=== PATIENT | female | born 1950 | race Caucasian/White ===

== ENCOUNTER 2016-05-29 14:42 | Inpatient (IN) | payer MEDICARE, MEDICAID ==
[~2016-05-29] VITALS: Ht 152.4 cm; Wt 72.6 kg
[~2016-05-29 14:42] MED LIST: ALBUTEROL S2.5 MG/.5 IN; ALBUTEROL0.5 % IN; ALBUTEROL2.5 MG/3 M IN; AMOXICILLIN500 MG PO; ANTIVERT12.5 MG OR; ATARAX PO; BP PILL; CEPHALEXIN500 MG OR; CIPROFLOXACN500 MG PO; CYCLOBENZAPR10 MG PO; EPIPEN 2-PAK0.3 MG IM; EPIPEN0.3 MG IM; FIORICET OR; FLEXERIL OR; FLONASE0.05 %; HYDROCHLOROT12.5 MG PO; LISINOPRIL10 MG PO; LORTAB 5 OR; LORTAB5 OR; MECLIZINE12.5 M1 OR; MEDDOSEPAK OR; MEDDOSEPAK PO; MELOXICAM15 MG OR; MUCINEX600 MG OR; NASONEX50 MCG/AC; NASONEX50 MCG/AC NAB; PENICILLN VK500 MG OR; PRAVACHOL20 MG PO; PROAIR HFA IN; RANITIDINE150 M1 OR; RANITIDINE150 M1 PO; REGLAN5 MG OR; STOMACH PILL; TERBINAFINE1 % EX; TRAMADOL HCL50 MG OR; TRAMADOL HCL50 MG PO; TRIAMCINOLON0.51 EX; TYLENOL COLD1 TA1 OR; ULTRAM50 M1 PO; XOPENEX HFA IN; ZITHROMAX250 MG PO; ZOFRAN ODT4 MG PO
[2016-05-29] MEDS ORDERED: NAPROXEN500 MG PO (16:53)
[2016-05-29] MEDS ORDERED: OMEPRAZOLE20 M1 PO (16:54)
[2016-05-29] MEDS ORDERED: LISINOP/HCTZ1 TAB PO (16:55)
[2016-05-29] MEDS ORDERED: PROAIR HFA IN (16:56)
[2016-06-30] VITALS (7 sets, daily range): BP systolic 101–120; BP diastolic 63–68
[2016-07-01 00:05] VITALS: BP 110/77
[2016-07-01 04:20] VITALS: BP 107/70
[2016-07-01 06:35] LABS: HEMATOCRIT 35.4 % (37.0-47.0); HEMOGLOBIN 11.2 g/dl (12.0-16.0); IMMATURE GRANULOCYTES 0.8 % (0.0-1.0); MEAN CELL VOLUME 90.5 fL CALC (80.0-100.0); MEAN CORPUSCULAR HGB 28.6 pG CALC (26.0-32.0); MEAN CORPUSCULAR HGB CONC 31.6 g/L CALC (32.0-36.0); NEUT# 10.18 thou/uL (2.00-7.15); RED BLOOD COUNT 3.91 mill/uL (4.20-5.60); RED CELL DISTRI WIDTH 14.4 % (11.5-15.5)
[2016-07-01 06:55] LABS: ALBUMIN 3.5 g/dL (3.2-5.0); ALKALINE PHOSPHATASE 74 u/l (38-126); ANION GAP 12 (6-22 (CALC)); BILIRUBIN, TOTAL 0.3 mg/dL (0.0-1.4); BUN 19 mg/dL (8-23); BUN/CREATININE RATIO 22 (12-20 (CALC)); CALCIUM 8.5 mg/dL (8.4-10.2); CARBON DIOXIDE 30 mmol/l (22-30); CHLORIDE 100 mmol/l (95-108); CREATININE 0.9 mg/dL (0.5-1.0); GFR > 60 ML/MIN (>=60 (CALC)); GFR FOR AFR.AMER. > 60 ML/MIN (>=60 (CALC)); GLUCOSE 122 mg/dL (82-115); POTASSIUM 4.2 mmol/l (3.5-5.1); SGOT/AST 28 u/l (9-36); SGPT/ALT 33 u/l (11-66); SODIUM 138 mmol/l (137-146); TOTAL PROTEIN 6.7 g/dL (6.3-8.2)
[2016-07-01 08:04] VITALS: BP 107/64
[2016-07-01 12:39] VITALS: BP 105/63
[2016-07-01 15:58] VITALS: BP 123/67
[2016-07-01 18:56] VITALS: BP 104/63
[2016-07-02 03:40] VITALS: BP 116/63
[2016-07-02 05:32] LABS: HEMATOCRIT 31.4 % (37.0-47.0); HEMOGLOBIN 9.7 g/dl (12.0-16.0)
[2016-07-02 07:51] VITALS: BP 113/66
[2016-07-02 11:53] VITALS: BP 103/58
[2016-07-02 15:11] VITALS: BP 110/57
[2016-07-02 18:16] LABS: URINE BILIRUBIN - DIPSTICK NEGATIVE (NEGATIVE); URINE BLOOD DIPSTICK MODERATE (NEGATIVE); URINE CLARITY CLEAR; URINE COLOR YELLOW; URINE GLUCOSE - DIPSTICK NEGATIVE (NEGATIVE); URINE KETONE NEGATIVE (NEGATIVE); URINE LEUK ESTERASE NEGATIVE (NEGATIVE); URINE NITRITE - DIPSTICK NEGATIVE (Negative); URINE PROTEIN - DIPSTICK TRACE mg/dL (NEG-TRACE); URINE UROBILINOGEN - DIPSTICK 0.2 E.U./dL (0.2)
[2016-07-02 18:39] LABS: URINE SQUAMOUS EPITHELIAL CELL FEW EPI/hpf (0-FEW)
[2016-07-02 19:15] VITALS: BP 100/58
[2016-07-02 23:40] VITALS: BP 101/63
[2016-07-03 03:59] VITALS: BP 103/57
[2016-07-03 05:11] LABS: HEMATOCRIT 27.9 % (37.0-47.0); HEMOGLOBIN 8.8 g/dl (12.0-16.0); IMMATURE GRANULOCYTES 0.5 % (0.0-1.0); MEAN CELL VOLUME 90.6 fL CALC (80.0-100.0); MEAN CORPUSCULAR HGB 28.6 pG CALC (26.0-32.0); MEAN CORPUSCULAR HGB CONC 31.5 g/L CALC (32.0-36.0); NEUT# 7.73 thou/uL (2.00-7.15); RED BLOOD COUNT 3.08 mill/uL (4.20-5.60); RED CELL DISTRI WIDTH 14.4 % (11.5-15.5)
[2016-07-03 05:29] LABS: ANION GAP 9 (6-22 (CALC)); BUN 12 mg/dL (8-23); BUN/CREATININE RATIO 19 (12-20 (CALC)); CALCIUM 8.1 mg/dL (8.4-10.2); CARBON DIOXIDE 32 mmol/l (22-30); CHLORIDE 99 mmol/l (95-108); CREATININE 0.6 mg/dL (0.5-1.0); GFR > 60 ML/MIN (>=60 (CALC)); GFR FOR AFR.AMER. > 60 ML/MIN (>=60 (CALC)); GLUCOSE 118 mg/dL (82-115); POTASSIUM 4.2 mmol/l (3.5-5.1); SODIUM 135 mmol/l (137-146)
[2016-07-03 08:27] VITALS: BP 104/66
[2016-07-03 15:50] VITALS: BP 117/62
[2016-07-03 19:30] VITALS: BP 107/62
[2016-07-04 04:30] VITALS: BP 121/69
[2016-07-04 06:16] LABS: HEMATOCRIT 30.3 % (37.0-47.0); HEMOGLOBIN 9.4 g/dl (12.0-16.0)
[2016-07-04 08:15] VITALS: BP 115/69
[2016-07-04] MEDS ORDERED: LEVAQUIN750 MG PO (12:50)
[2016-07-04] MEDS ORDERED: PERCOCET 10/31 COMBO PO (12:50)
[2016-07-04] MEDS ORDERED: XARELTO10 MG PO (21:20)
== END 2016-07-04 16:42 | DRG 469 ==
LOC: ENPENDDIS → MS2 06-01 09:30
PROVIDERS: ADMIT Internal Medicine; ATTEND Orthopaedic Surgery
PROC: 0SRC0J9 Replacement of Right Knee Joint with Synthetic Substitute, Cemented, Open Approach (ICD-10-PCS; principal; 2016-06-30)
DX: M17.11 Unilateral primary osteoarthritis, right knee (principal); J18.9 Pneumonia, unspecified organism; J95.89 Other postprocedural complications and disorders of respiratory system, not elsewhere classified; I10 Essential (primary) hypertension; J45.909 Unspecified asthma, uncomplicated; Y83.1 Surgical operation with implant of artificial internal device as the cause of abnormal reaction of the patient, or of later complication, without mention of misadventure at the time of the procedure; Y92.239 Unspecified place in hospital as the place of occurrence of the external cause; Z88.6 Allergy status to analgesic agent
CPT/HCPCS: J1650; J2710

== ENCOUNTER 2017-01-23 11:21 | Emergency (ER) | payer MEDICARE, MEDICAID ==
[~2017-01-23] VITALS: Ht 152.4 cm; Wt 73.2 kg
[~2017-01-23 11:21] MED LIST changes: +LEVAQUIN750 MG PO; +LISINOP/HCTZ1 TAB PO; +NAPROXEN500 MG PO; +OMEPRAZOLE20 M1 PO; +PERCOCET 10/31 COMBO PO; +XARELTO10 MG PO
[2017-01-23 12:48] LABS: HEMATOCRIT 45.1 % (37.0-47.0); HEMOGLOBIN 14.7 g/dl (12.0-16.0); IMMATURE GRANULOCYTES 0.8 % (0.0-1.0); MEAN CELL VOLUME 85.6 fL CALC (80.0-100.0); MEAN CORPUSCULAR HGB 27.9 pG CALC (26.0-32.0); MEAN CORPUSCULAR HGB CONC 32.6 g/L CALC (32.0-36.0); NEUT# 5.29 thou/uL (2.00-7.15); RED BLOOD COUNT 5.27 mill/uL (4.20-5.60); RED CELL DISTRI WIDTH 13.8 % (11.5-15.5)
[2017-01-23 12:52] LABS: URINE BILIRUBIN - DIPSTICK NEGATIVE (NEGATIVE); URINE COLOR YELLOW; URINE GLUCOSE - DIPSTICK NEGATIVE (NEGATIVE); URINE KETONE NEGATIVE (NEGATIVE); URINE LEUK ESTERASE NEGATIVE (NEGATIVE); URINE NITRITE - DIPSTICK NEGATIVE (Negative); URINE PROTEIN - DIPSTICK NEGATIVE (NEG-TRACE); URINE SPECIFIC GRAVITY 1.025; URINE UROBILINOGEN - DIPSTICK 0.2 E.U./dL (0.2)
[2017-01-23 12:55] LABS: URINE BLOOD DIPSTICK TRACE (NEGATIVE); URINE CLARITY CLEAR
[2017-01-23 12:56] LABS: ALBUMIN 4.7 g/dL (3.2-5.0); ALKALINE PHOSPHATASE 102 u/l (38-126); AMYLASE 99 u/l (30-110); ANION GAP 15 (6-22 (CALC)); BILIRUBIN, TOTAL 0.7 mg/dL (0.0-1.4); BUN 30 mg/dL (8-23); BUN/CREATININE RATIO 34 (12-20 (CALC)); CALCIUM 9.6 mg/dL (8.4-10.2); CARBON DIOXIDE 27 mmol/l (22-30); CHLORIDE 101 mmol/l (95-108); CREATININE 0.9 mg/dL (0.5-1.0); GFR > 60 ML/MIN (>=60 (CALC)); GFR FOR AFR.AMER. > 60 ML/MIN (>=60 (CALC)); GLUCOSE 94 mg/dL (82-115); LIPASE 172 u/l (23-300); POTASSIUM 4.1 mmol/l (3.5-5.1); SGOT/AST 39 u/l (9-36); SGPT/ALT 40 u/l (11-66); SODIUM 139 mmol/l (137-146); TOTAL PROTEIN 8.8 g/dL (6.3-8.2)
[2017-01-23 13:08] LABS: MYOGLOBIN 40 ng/mL (0 - 62)
[2017-01-23] MEDS ORDERED: PRILOSEC20 MG PO (15:48)
[2017-01-23 16:14] VITALS: BP 117/64
== END 2017-01-23 17:04 | disposition home or self-care (01) ==
LOC: ED 11:21
PROVIDERS: Emergency Medicine
DX: R10.11 Right upper quadrant pain (principal); R11.0 Nausea; I10 Essential (primary) hypertension; K76.0 Fatty (change of) liver, not elsewhere classified

== ENCOUNTER 2017-01-28 12:40 | Emergency (ER) | payer MEDICARE, MEDICAID ==
[~2017-01-28] VITALS: Ht 152.4 cm; Wt 75.0 kg
[~2017-01-28 12:40] MED LIST changes: +PRILOSEC20 MG PO
[2017-01-28] MEDS ORDERED: POLYTRIM OU (13:35)
[2017-01-28 13:45] VITALS: BP 107/78
== END 2017-01-28 13:45 | disposition home or self-care (01) ==
LOC: ED 12:40
DX: S05.02XA Injury of conjunctiva and corneal abrasion without foreign body, left eye, initial encounter (principal); I10 Essential (primary) hypertension; M19.90 Unspecified osteoarthritis, unspecified site; X58.XXXA Exposure to other specified factors, initial encounter

== ENCOUNTER 2017-08-08 00:29 | Emergency (ER) | payer MEDICARE, MEDICAID ==
[~2017-08-08] VITALS: Ht 152.4 cm; Wt 72.7 kg
[~2017-08-08 00:29] MED LIST changes: +POLYTRIM OU
[2017-08-08 01:12] LABS: HEMATOCRIT 39.7 % (37.0-47.0); HEMOGLOBIN 13.1 g/dl (12.0-16.0); IMMATURE GRANULOCYTES 0.6 % (0.0-1.0); MEAN CELL VOLUME 87.1 fL CALC (80.0-100.0); MEAN CORPUSCULAR HGB 28.7 pG CALC (26.0-32.0); NEUT# 4.3 thou/uL (2.00-7.15); RED BLOOD COUNT 4.56 mill/uL (4.20-5.60); RED CELL DISTRI WIDTH 14.3 % (11.5-15.5)
[2017-08-08 01:20] LABS: ALKALINE PHOSPHATASE 111 u/l (38-126); ANION GAP 16 (6-22 (CALC)); BILIRUBIN, TOTAL 0.3 mg/dL (0.0-1.4); BUN 31 mg/dL (8-23); BUN/CREATININE RATIO 37 (12-20 (CALC)); CARBON DIOXIDE 25 mmol/l (22-30); CHLORIDE 103 mmol/l (95-108); CREATININE 0.8 mg/dL (0.5-1.0); GFR > 60 ML/MIN (>=60 (CALC)); GFR FOR AFR.AMER. > 60 ML/MIN (>=60 (CALC)); POTASSIUM 4.3 mmol/l (3.5-5.1); SGOT/AST 30 u/l (9-36); SGPT/ALT 45 u/l (11-66); SODIUM 139 mmol/l (137-146); TOTAL PROTEIN 7.7 g/dL (6.3-8.2)
[2017-08-08 01:29] LABS: URINE BILIRUBIN - DIPSTICK NEGATIVE (NEGATIVE); URINE BLOOD DIPSTICK MODERATE (NEGATIVE); URINE COLOR YELLOW; URINE GLUCOSE - DIPSTICK NEGATIVE (NEGATIVE); URINE KETONE NEGATIVE (NEGATIVE); URINE LEUK ESTERASE NEGATIVE (NEGATIVE); URINE NITRITE - DIPSTICK NEGATIVE (Negative); URINE PH 5.5 (4.5-8.0); URINE PROTEIN - DIPSTICK NEGATIVE (NEG-TRACE); URINE SPECIFIC GRAVITY 1.015; URINE UROBILINOGEN - DIPSTICK 0.2 E.U./dL (0.2)
[2017-08-08 01:32] LABS: URINE CLARITY SL CLOUDY
[2017-08-08 01:40] LABS: URINE BACTERIA FEW hpf; URINE MUCUS FEW hpf (NONE-FEW); URINE SQUAMOUS EPITHELIAL CELL MODERATE EPI/hpf (0-FEW); URINE WBC 0-2 WBC/hpf (0-5)
[2017-08-08] MEDS ORDERED: ANTIVERT PO (02:13)
[2017-08-08 02:21] VITALS: BP 138/75
== END 2017-08-08 02:37 | disposition home or self-care (01) ==
LOC: ED 00:29
PROVIDERS: Family Medicine
DX: R42 Dizziness and giddiness (principal); I10 Essential (primary) hypertension

== ENCOUNTER 2017-09-19 12:02 | Emergency (ER) | payer MEDICARE, MEDICAID ==
[~2017-09-19] VITALS: Ht 152.4 cm; Wt 81.8 kg
[~2017-09-19 12:02] MED LIST changes: +ANTIVERT PO
[2017-09-19 12:31] LABS: HEMATOCRIT 41.4 % (37.0-47.0); HEMOGLOBIN 13.6 g/dl (12.0-16.0); IMMATURE GRANULOCYTES 0.3 % (0.0-1.0); MEAN CELL VOLUME 86.8 fL CALC (80.0-100.0); MEAN CORPUSCULAR HGB 28.5 pG CALC (26.0-32.0); MEAN CORPUSCULAR HGB CONC 32.9 g/L CALC (32.0-36.0); NEUT# 5.37 thou/uL (2.00-7.15); RED BLOOD COUNT 4.77 mill/uL (4.20-5.60); RED CELL DISTRI WIDTH 13.6 % (11.5-15.5)
[2017-09-19 12:47] LABS: ALBUMIN 4.6 g/dL (3.2-5.0); ALKALINE PHOSPHATASE 118 u/l (38-126); ANION GAP 17 (6-22 (CALC)); BILIRUBIN, TOTAL 0.4 mg/dL (0.0-1.4); BUN 36 mg/dL (8-23); BUN/CREATININE RATIO 32 (12-20 (CALC)); CARBON DIOXIDE 25 mmol/l (22-30); CHLORIDE 104 mmol/l (95-108); CREATININE 1.1 mg/dL (0.5-1.0); GFR 50 ML/MIN (>=60 (CALC)); GFR FOR AFR.AMER. 60 ML/MIN (>=60 (CALC)); POTASSIUM 4.5 mmol/l (3.5-5.1); SGOT/AST 29 u/l (9-36); SGPT/ALT 42 u/l (11-66); SODIUM 142 mmol/l (137-146); TOTAL PROTEIN 8.9 g/dL (6.3-8.2)
[2017-09-19 12:55] LABS: MYOGLOBIN 54 ng/mL (0 - 62)
[2017-09-19] MEDS ORDERED: LISINOP/HCTZ1 TAB PO (14:28)
[2017-09-19] MEDS ORDERED: OMEPRAZOLE20 M2 PO (14:31)
[2017-09-19] MEDS ORDERED: MECLIZINE HCL25 MG PO (14:34)
[2017-09-19] MEDS ORDERED: ATORVASTATIN CA40 MG PO (14:38)
[2017-09-19] MEDS ORDERED: ISOSORB MONO20 MG PO (14:39)
[2017-09-19] MEDS ORDERED: METO25TAB PO (14:40)
[2017-09-19] MEDS ORDERED: PLAVIX75 MG PO (14:46)
[2017-09-19] MEDS ORDERED: NITROGLYCERIN0.3 MG SL (14:51)
[2017-09-19 14:54] LABS: URINE BILIRUBIN - DIPSTICK NEGATIVE (NEGATIVE); URINE BLOOD DIPSTICK TRACE-INTACT (NEGATIVE); URINE COLOR YELLOW; URINE GLUCOSE - DIPSTICK NEGATIVE (NEGATIVE); URINE KETONE NEGATIVE (NEGATIVE); URINE LEUK ESTERASE NEGATIVE (NEGATIVE); URINE NITRITE - DIPSTICK NEGATIVE (Negative); URINE PH 5.5 (4.5-8.0); URINE PROTEIN - DIPSTICK NEGATIVE (NEG-TRACE); URINE SPECIFIC GRAVITY >=1.030; URINE UROBILINOGEN - DIPSTICK 0.2 E.U./dL (0.2)
[2017-09-19 14:58] LABS: BARBITURATES NEGATIVE (NEGATIVE); COCAINE NEGATIVE (NEGATIVE); METHADONE NEGATIVE (NEGATIVE); OXCYCODONE NEGATIVE (NEGATIVE); TETRAHYDROCANNABIONOL NEGATIVE (NEGATIVE); TRICYLIC ANTIDEPRESSANTS NEGATIVE (NEGATIVE); URINE CLARITY CLEAR
--- NOTE | 2017-09-19 15:16 | NUR ---
Medication reconciliation completed by pharmacy.
[2017-09-19] MEDS ORDERED: METO50TA52 PO (16:19)
[2017-09-19 16:21] VITALS: BP 118/71
== END 2017-09-19 16:35 | disposition home or self-care (01) ==
LOC: ED 12:02
PROVIDERS: Family Medicine
DX: R00.0 Tachycardia, unspecified (principal); I25.10 Atherosclerotic heart disease of native coronary artery without angina pectoris; I21.9 Acute myocardial infarction, unspecified; I10 Essential (primary) hypertension; J45.909 Unspecified asthma, uncomplicated; Z95.5 Presence of coronary angioplasty implant and graft

== ENCOUNTER 2017-10-27 13:07 | Emergency (ER) | payer MEDICARE, MEDICAID ==
[~2017-10-27] VITALS: Ht 152.4 cm; Wt 80.0 kg
[~2017-10-27 13:07] MED LIST changes: +ATORVASTATIN CA40 MG PO; +ISOSORB MONO20 MG PO; +MECLIZINE HCL25 MG PO; +METO25TAB PO; +METO50TA52 PO; +NITROGLYCERIN0.3 MG SL; +OMEPRAZOLE20 M2 PO; +PLAVIX75 MG PO
[2017-10-27] MEDS ORDERED: NAPROSYN500 MG PO (13:46)
[2017-10-27] MEDS ORDERED: ASPERCREME LIDOCA41 TOP (14:40)
[2017-10-27] MEDS ORDERED: MOTRIN400 MG PO (14:40)
[2017-10-27] MEDS ORDERED: AUGMENTIN875TAB PO (14:40)
[2017-10-27] MEDS ORDERED: VOLTAREN1%GEL TOP (14:40)
[2017-10-27 14:50] VITALS: BP 119/74
== END 2017-10-27 14:50 | disposition home or self-care (01) ==
LOC: ED 13:07
DX: S40.011A Contusion of right shoulder, initial encounter (principal); S70.01XA Contusion of right hip, initial encounter; S90.01XA Contusion of right ankle, initial encounter; K08.89 Other specified disorders of teeth and supporting structures; J45.909 Unspecified asthma, uncomplicated; I10 Essential (primary) hypertension; V28.1XXA Motorcycle passenger injured in noncollision transport accident in nontraffic accident, initial encounter

== ENCOUNTER 2018-03-14 18:55 | Emergency (ER) | payer MEDICARE, MEDICAID ==
[~2018-03-14] VITALS: Ht 152.4 cm; Wt 63.6 kg
[~2018-03-14 18:55] MED LIST changes: +ASPERCREME LIDOCA41 TOP; +AUGMENTIN875TAB PO; +MOTRIN400 MG PO; +NAPROSYN500 MG PO; +VOLTAREN1%GEL TOP
[2018-03-14] MEDS ORDERED: PREDNISONE50 MG PO (19:20)
[2018-03-14 19:54] VITALS: BP 93/55
== END 2018-03-14 19:54 | disposition home or self-care (01) ==
LOC: ED 18:55
DX: T63.441A Toxic effect of venom of bees, accidental (unintentional), initial encounter (principal); M79.89 Other specified soft tissue disorders; I10 Essential (primary) hypertension; J45.909 Unspecified asthma, uncomplicated

== ENCOUNTER → 2018-05-21 | Outpatient (REF) | payer MEDICARE, MEDICAID ==
[~2018-05-21] MED LIST changes: +FLONASE AL50 MCG/ACT; +FLOVENT HF110 MCG/AC IN; +LISINOPRIL5 MG PO; +MECLIZINE25 MG PO; +PREDNISONE50 MG PO; +PROVENTIL0.083 % IN
[2018-05-21 11:46] LABS: HEMATOCRIT 43.2 % (37.0-47.0); HEMOGLOBIN 13.8 g/dl (12.0-16.0); IMMATURE GRANULOCYTES 0.3 % (0.0-5.0); MEAN CELL VOLUME 86.1 fL CALC (80.0-100.0); MEAN CORPUSCULAR HGB 27.5 pG CALC (26.0-32.0); MEAN CORPUSCULAR HGB CONC 31.9 g/L CALC (32.0-36.0); NEUT# 3.89 thou/uL (2.00-7.15); RED BLOOD COUNT 5.02 mill/uL (4.20-5.60); RED CELL DISTRI WIDTH 14.1 % (11.5-15.5)
[2018-05-21 12:07] LABS: ACT PARTIAL THROMBO TIME 27.6 SECONDS (20.0-32.5); INTERNATIONAL NORMALIZED RATIO 0.9 RATIO (0.7-1.3); PROTHROMBIN TIME 9.9 SECONDS (9.0-12.5)
[2018-05-21 12:11] LABS: ALBUMIN 4.4 g/dL (3.2-5.0); ALKALINE PHOSPHATASE 90 u/l (38-126); ANION GAP 14 (6-22 (CALC)); BILIRUBIN, TOTAL 0.5 mg/dL (0.0-1.4); BUN 32 mg/dL (8-23); BUN/CREATININE RATIO 38 (12-20 (CALC)); CALCULATED LDLCHOLESTEROL 118 mg/dL (62-129 (CALC)); CARBON DIOXIDE 27 mmol/l (22-30); CHLORIDE 102 mmol/l (95-108); CHOLESTEROL HDL RATIO 4.5 (<4.4 (CALC)); CREATININE 0.8 mg/dL (0.5-1.0); GFR > 60 ML/MIN (>=60 (CALC)); GFR FOR AFR.AMER. > 60 ML/MIN (>=60 (CALC)); HDL CHOLESTEROL 47 mg/dL (>=40); POTASSIUM 4.3 mmol/l (3.5-5.1); SGOT/AST 27 u/l (9-36); SODIUM 140 mmol/l (137-146); TOTAL CHOLESTEROL 211 mg/dl (0-199); TOTAL PROTEIN 7.9 g/dL (6.3-8.2); TOTAL TRIGLYCERIDES 227 mg/dl (30-149); VLDL CHOLESTROL 45 mg/dl (1-41 (CALC))
[2018-05-21 13:36] LABS: URINE BILIRUBIN - DIPSTICK NEGATIVE (NEGATIVE); URINE BLOOD DIPSTICK MODERATE (NEGATIVE); URINE COLOR YELLOW; URINE GLUCOSE - DIPSTICK NEGATIVE (NEGATIVE); URINE KETONE NEGATIVE (NEGATIVE); URINE LEUK ESTERASE NEGATIVE (Negative); URINE NITRITE - DIPSTICK NEGATIVE (Negative); URINE PROTEIN - DIPSTICK NEGATIVE (NEG-TRACE); URINE SPECIFIC GRAVITY >=1.030; URINE UROBILINOGEN - DIPSTICK 0.2 E.U./dL (0.2)
[2018-05-21 13:44] LABS: URINE CLARITY SL CLOUDY
[2018-05-21 13:45] LABS: URINE EPITHELIAL CELLS FEW EPI/hpf (0-FEW)
== END | disposition home or self-care (01) ==
LOC: LAB 11:15
PROVIDERS: ATTEND Physician Assistant Medical
DX: Z01.818 Encounter for other preprocedural examination (principal); E78.5 Hyperlipidemia, unspecified; Z79.01 Long term (current) use of anticoagulants

== ENCOUNTER 2018-05-27 16:42 | Inpatient (IN) | payer MEDICARE, MEDICAID ==
[~2018-05-27] VITALS: Ht 152.4 cm; Wt 70.3 kg
[~2018-05-27 16:42] MED LIST changes: -FLOVENT HF110 MCG/AC IN; -LISINOPRIL5 MG PO; -MECLIZINE25 MG PO
[2018-06-03] VITALS (9 sets, daily range): BP systolic 92–139; BP diastolic 47–88
[2018-06-03] MEDS ORDERED: LISINOPRIL5 MG PO (06:24)
[2018-06-03] MEDS ORDERED: FLOVENT HF110 MCG/AC IN (06:24)
[2018-06-03] MEDS ORDERED: MECLIZINE25 MG PO (06:25)
[2018-06-04 00:45] VITALS: BP 96/45
[2018-06-04 04:00] VITALS: BP 93/51
[2018-06-04 05:09] LABS: HEMATOCRIT 33.3 % (37.0-47.0); HEMOGLOBIN 10.4 g/dl (12.0-16.0)
[2018-06-04 05:39] VITALS: BP 112/72
[2018-06-04 09:07] VITALS: BP 103/45
[2018-06-04 11:30] VITALS: BP 106/61
[2018-06-04 16:00] VITALS: BP 103/59
== END 2018-06-04 18:30 | disposition home health service (06) | DRG 483 ==
LOC: MS2 06-03 05:59
PROVIDERS: ADMIT Orthopaedic Surgery; ATTEND Internal Medicine Nephrology
PROC: 0RRJ00Z Replacement of Right Shoulder Joint with Reverse Ball and Socket Synthetic Substitute, Open Approach (ICD-10-PCS; principal; 2018-06-03)
PROC: 0LS30ZZ Reposition Right Upper Arm Tendon, Open Approach (ICD-10-PCS; 2018-06-03)
DX: M19.011 Primary osteoarthritis, right shoulder (principal); M75.121 Complete rotator cuff tear or rupture of right shoulder, not specified as traumatic; S46.211A Strain of muscle, fascia and tendon of other parts of biceps, right arm, initial encounter; I10 Essential (primary) hypertension; E78.5 Hyperlipidemia, unspecified; J44.9 Chronic obstructive pulmonary disease, unspecified; G40.909 Epilepsy, unspecified, not intractable, without status epilepticus; I25.10 Atherosclerotic heart disease of native coronary artery without angina pectoris; K21.9 Gastro-esophageal reflux disease without esophagitis; X58.XXXA Exposure to other specified factors, initial encounter; Z95.5 Presence of coronary angioplasty implant and graft
CPT/HCPCS: J2710

== ENCOUNTER → 2018-05-27 | Outpatient (REF) | payer MEDICARE, MEDICAID ==
[~2018-05-27] VITALS: Ht 152.4 cm; Wt 70.3 kg
[2018-05-27 10:21] VITALS: BP 115/70
== END | disposition home or self-care (01) ==
LOC: ORM 09:15 → PO 09:22
PROVIDERS: ATTEND Orthopaedic Surgery
DX: Z01.818 Encounter for other preprocedural examination (principal); M19.011 Primary osteoarthritis, right shoulder; M75.121 Complete rotator cuff tear or rupture of right shoulder, not specified as traumatic; I10 Essential (primary) hypertension; Z91.09 Other allergy status, other than to drugs and biological substances; M19.90 Unspecified osteoarthritis, unspecified site; D49.512 Neoplasm of unspecified behavior of left kidney; J45.909 Unspecified asthma, uncomplicated; G47.419 Narcolepsy without cataplexy; I25.10 Atherosclerotic heart disease of native coronary artery without angina pectoris; Z96.652 Presence of left artificial knee joint; Z95.818 Presence of other cardiac implants and grafts

== ENCOUNTER 2018-08-04 12:45 | Emergency (ER) | payer MEDICARE, MEDICAID ==
[~2018-08-04] VITALS: Ht 152.4 cm; Wt 70.0 kg
[~2018-08-04 12:45] MED LIST changes: +FLOVENT HF110 MCG/AC IN; +LISINOPRIL5 MG PO; +MECLIZINE25 MG PO
[2018-08-04] MEDS ORDERED: ULTRAM50 M1 PO (12:55)
[2018-08-04] MEDS ORDERED: AMOXICILLIN500 MG PO (12:55)
[2018-08-04 13:02] VITALS: BP 132/81
== END 2018-08-04 13:02 | disposition home or self-care (01) ==
LOC: ED 12:45
DX: K04.7 Periapical abscess without sinus (principal); S02.5XXA Fracture of tooth (traumatic), initial encounter for closed fracture

== ENCOUNTER 2019-02-04 17:11 | Emergency (ER) | payer MEDICARE ==
[~2019-02-04] VITALS: Ht 152.4 cm; Wt 75.0 kg
[2019-02-04] MEDS ORDERED: GENTAK0.32 OD (18:06)
[2019-02-04 18:15] VITALS: BP 129/84
[2019-02-04] MEDS ORDERED: OMEPRAZOLE DR40 MG PO (18:18)
[2019-02-04] MEDS ORDERED: LISINOP/HCTZ1 TAB PO (18:18)
== END 2019-02-04 18:15 | disposition home or self-care (01) ==
LOC: ED 17:11
DX: S05.01XA Injury of conjunctiva and corneal abrasion without foreign body, right eye, initial encounter (principal); I10 Essential (primary) hypertension; X58.XXXA Exposure to other specified factors, initial encounter

== ENCOUNTER 2019-07-20 | Emergency (ER) | payer MEDICARE, MEDICAID ==
[~2019-07-20] MED LIST changes: +GENTAK0.32 OD; +OMEPRAZOLE DR40 MG PO
[2019-07-20] MEDS ORDERED: ZESTRIL5 M1 PO (22:31)
[2019-07-20] MEDS ORDERED: MECLIZINE25 MG PO (22:32)
[2019-07-20] MEDS ORDERED: BLADDER PILL PO (22:32)
[2019-07-20 23:06] LABS: ALBUMIN 4.3 g/dL (3.2-5.0); ALKALINE PHOSPHATASE 101 u/l (38-126); AMYLASE 71 u/l (30-110); ANION GAP 13 (6-22 (CALC)); BILIRUBIN, TOTAL 0.3 mg/dL (0.0-1.4); BUN 27 mg/dL (8-23); BUN/CREATININE RATIO 26 (12-20 (CALC)); CARBON DIOXIDE 27 mmol/l (22-30); CHLORIDE 99 mmol/l (95-108); GFR 55 ML/MIN (>=60 (CALC)); GFR FOR AFR.AMER. > 60 ML/MIN (>=60 (CALC)); LIPASE 150 u/l (23-300); POTASSIUM 4.2 mmol/l (3.5-5.1); SGOT/AST 29 u/l (9-36); SODIUM 134 mmol/l (137-146); TOTAL PROTEIN 7.9 g/dL (6.3-8.2)
[2019-07-20 23:10] LABS: HEMOGLOBIN 12.2 g/dl (12.0-16.0); IMMATURE GRANULOCYTES 0.3 % (0.0-5.0); MEAN CELL VOLUME 81.9 fL CALC (80.0-100.0); MEAN CORPUSCULAR HGB 26.3 pG CALC (26.0-32.0); MEAN CORPUSCULAR HGB CONC 32.1 g/dL CAL (32.0-36.0); NEUT# 4.64 thou/uL (2.00-7.15); RED BLOOD COUNT 4.64 mill/uL (4.20-5.60); RED CELL DISTRI WIDTH 15.3 % (11.5-15.5)
[2019-07-20 23:26] LABS: URINE BILIRUBIN - DIPSTICK NEGATIVE (NEGATIVE); URINE BLOOD DIPSTICK SMALL (NEGATIVE); URINE COLOR YELLOW; URINE GLUCOSE - DIPSTICK NEGATIVE (NEGATIVE); URINE KETONE NEGATIVE (NEGATIVE); URINE LEUK ESTERASE NEGATIVE (NEGATIVE); URINE NITRITE - DIPSTICK NEGATIVE (Negative); URINE PROTEIN - DIPSTICK NEGATIVE (NEG-TRACE); URINE SPECIFIC GRAVITY 1.015; URINE UROBILINOGEN - DIPSTICK 0.2 E.U./dL (0.2)
[2019-07-20 23:27] LABS: URINE SQUAMOUS EPITHELIAL CELL FEW EPI/hpf (0-FEW); URINE WBC 0-2 WBC/hpf (0-5)
[2019-07-21] MEDS ORDERED: LIBRAX1 CAP PO (01:42)
== END 2019-07-21 02:00 | disposition home or self-care (01) ==
PROVIDERS: Family Medicine
DX: R10.32 Left lower quadrant pain (principal); I10 Essential (primary) hypertension; I25.2 Old myocardial infarction; Z95.5 Presence of coronary angioplasty implant and graft
CPT/HCPCS: Q9967

== ENCOUNTER 2019-08-14 12:10 | Emergency (ER) | payer MEDICARE, MEDICAID ==
[~2019-08-14 12:10] MED LIST changes: +BLADDER PILL PO; +LIBRAX1 CAP PO; +ZESTRIL5 M1 PO
[2019-08-14] MEDS ORDERED: MOMETASONE50 MCG/ACT NAB (12:37)
[2019-08-14] MEDS ORDERED: NAPROXEN250 MG PO (12:37)
[2019-08-14 12:57] LABS: HEMATOCRIT 39.1 % (37.0-47.0); HEMOGLOBIN 12.5 g/dl (12.0-16.0); IMMATURE GRANULOCYTES 0.4 % (0.0-5.0); MEAN CELL VOLUME 82.1 fL CALC (80.0-100.0); MEAN CORPUSCULAR HGB 26.3 pG CALC (26.0-32.0); NEUT# 4.11 thou/uL (2.00-7.15); RED BLOOD COUNT 4.76 mill/uL (4.20-5.60)
[2019-08-14 13:06] LABS: ALBUMIN 4.4 g/dL (3.2-5.0); ALKALINE PHOSPHATASE 102 u/l (38-126); ANION GAP 17 (6-22 (CALC)); BILIRUBIN, TOTAL 0.3 mg/dL (0.0-1.4); BUN 28 mg/dL (8-23); BUN/CREATININE RATIO 30 (12-20 (CALC)); CARBON DIOXIDE 23 mmol/l (22-30); CHLORIDE 100 mmol/l (95-108); CREATININE 0.9 mg/dL (0.5-1.0); GFR > 60 ML/MIN (>=60 (CALC)); GFR FOR AFR.AMER. > 60 ML/MIN (>=60 (CALC)); POTASSIUM 3.8 mmol/l (3.5-5.1); SGOT/AST 37 u/l (9-36); SODIUM 136 mmol/l (137-146); TOTAL PROTEIN 8.4 g/dL (6.3-8.2)
[2019-08-14 13:18] LABS: MYOGLOBIN 22 ng/mL (0 - 62)
[2019-08-14 13:44] LABS: INTERNATIONAL NORMALIZED RATIO 0.9 RATIO (0.7-1.3); PROTHROMBIN TIME 9.8 SECONDS (9.0-12.5)
[2019-08-14 13:47] LABS: D-DIMER 0.34 mg/L (0.19-0.60)
[2019-08-14 14:53] VITALS: BP 130/90
== END 2019-08-14 14:55 | disposition home or self-care (01) ==
LOC: ED 12:10
PROVIDERS: Family Medicine
DX: R07.9 Chest pain, unspecified (principal); I25.10 Atherosclerotic heart disease of native coronary artery without angina pectoris; I10 Essential (primary) hypertension; J45.909 Unspecified asthma, uncomplicated; I25.2 Old myocardial infarction; Z95.5 Presence of coronary angioplasty implant and graft

== ENCOUNTER 2019-09-16 09:33 | Observation (INO) | payer MEDICARE, MEDICAID ==
[~2019-09-16] VITALS: Ht 152.4 cm; Wt 79.2 kg
[~2019-09-16 09:33] MED LIST changes: +MOMETASONE50 MCG/ACT NAB; +NAPROXEN250 MG PO
--- NOTE | 2019-09-16 09:48 | NUR ---
PATIENT TO ROOM VIA EMS AND PHYSICIAN AT BEDSIDE FOR EVAL
--- NOTE | 2019-09-16 09:51 | NUR ---
PT PRESENTS WITH PAIN 0/10. SHE STATES THAT WHEN SHE AWOKE THIS MORNING, SHE HAD CHEST PAIN 9-10/10. PT HAS PRN NITRO SL BECAUSE OF PREVIOUS STENTS AND HX OF [place]. AFTER THREE ROUNDS OF NITRO PAIN IS DOWN TO NONE. PERRLA. DENIES ANY RADIATIONS TO OTHER PARTS OF BODY AND SOB. NO LABORED BREATHING. PT IS SHIVERING BECAUSE SHE IS COLD. TWO WARM BLANKETS APPLIED. AOX4. VITALS STABLE. WILL CONTINUE TO MONITOR.
[2019-09-16 10:20] LABS: HEMATOCRIT 39.2 % (37.0-47.0); HEMOGLOBIN 12.1 g/dl (12.0-16.0); IMMATURE GRANULOCYTES 0.3 % (0.0-5.0); MEAN CELL VOLUME 83.1 fL CALC (80.0-100.0); MEAN CORPUSCULAR HGB 25.6 pG CALC (26.0-32.0); MEAN CORPUSCULAR HGB CONC 30.9 g/dL CAL (32.0-36.0); NEUT# 4.32 thou/uL (2.00-7.15); RED BLOOD COUNT 4.72 mill/uL (4.20-5.60); RED CELL DISTRI WIDTH 14.7 % (11.5-15.5)
--- NOTE | 2019-09-16 10:30 | NUR ---
PT STATES THAT SHE CONTINUES TO NOT BE IN PAIN. SHE IS RESTING ON STRETCHER WITH CALL LIGHT WITHIN REACH
[2019-09-16 10:35] LABS: ALBUMIN 4.5 g/dL (3.2-5.0); ALKALINE PHOSPHATASE 93 u/l (38-126); ANION GAP 11 (6-22 (CALC)); BILIRUBIN, TOTAL 0.3 mg/dL (0.0-1.4); BUN 30 mg/dL (8-23); BUN/CREATININE RATIO 28 (12-20 (CALC)); CHLORIDE 99 mmol/l (95-108); CREATININE 1.1 mg/dL (0.5-1.0); GFR 49 ML/MIN (>=60 (CALC)); GFR FOR AFR.AMER. 60 ML/MIN (>=60 (CALC)); POTASSIUM 4.3 mmol/l (3.5-5.1); SGOT/AST 38 u/l (9-36); SODIUM 134 mmol/l (137-146); TOTAL PROTEIN 8.1 g/dL (6.3-8.2)
[2019-09-16 10:43] LABS: CARBON DIOXIDE 28 mmol/l (22-30)
[2019-09-16 10:48] LABS: MYOGLOBIN 93 ng/mL (0 - 62)
--- NOTE | 2019-09-16 11:42 | NUR ---
PT NOTIFIED OF ADMISSION STATUS AND EDU AND DISCUSSION ON TREATMENTS. PT VERBALIZED UNDERSTANDING. CALL LIGHT WITHIN REACH
--- NOTE | 2019-09-16 12:45 | NUR ---
PT REQUESTED TO GO TO BR, PT DISCONNECTED AND ASSISTED TO BR. STEADY GAIT.
--- NOTE | 2019-09-16 13:19 | NUR ---
ATTEMPTED TO CALL REPORT, SANITATION WORKER STATES THAT NURSE IS BUSY WITH A PT. WILL CALL BACK LATER
--- NOTE | 2019-09-16 13:48 | NUR ---
GAVE REPORT TO MED SURG
--- NOTE | 2019-09-16 13:57 | NUR ---
PT ARRIVED TO MED/SURG ROOM 262 IN STABLE CONDITION VIA WHEELCHAIR ACCOMPANIED BY SHERLY PALENCIA;PT AMBULATED TO STANDING SCALE AND BEDSIDE WITH A STEADY GAIT;WT AND VS OBTAINED BY BIPIN ROMERO;PT A&O X3,ORIENTED TO ROOM AND CALL LIGHT SYSTEM;PT REPORTS MIDSTERNAL CHEST PAIN THAT STARTED THIS MORNING AT HOME, PT TOOK 3 SL NITRO WHICH RELEIVED CP;PT DENIES ANY CURRENT PAIN OR DISCOMFORTS,PAIN SCALE AND REPORTING EDUCATED;RESPIRATIONS EVEN AND UNLABORED ON O2 @ 2L VIA NC,CLEAR LUNG SOUNDS;PT IS NOT HOME OXYGEN DEPENDENT;ABDOMEN SOFT ON PALPATION AND ACTIVE IN ALL 4 QUADRANTS, LAST BM 09/16/19;STRONG PEDAL PULSES;SKIN INTACT;TELE MONITORING IN PLACE;#20G TO LAC FLUSHED AND PATENT,SITE APPEARS HEALTHY;SEIZURE PRECAUTIONS IN PLACE;ALLERGY BAND APPLIED TO RFA;MILK AND PUDDING PROVIDED PER REQUEST;PT DENIES ANY ADDITIONAL NEEDS AND IS ENCOURAGED TO CALL FOR ASSISTANCE IF NEEDED;FALL PRECAUTIONS IN PLACE WITH BED IN THE LOWEST POSITION AND CALL LIGHT IN REACH;WILL CONTINUE TO MONITOR
--- NOTE | 2019-09-16 13:58 | NUR ---
PT TRANSPORTED TO [facility] SURG STABLE AND IN NO DISTRESS BY STRETCHER CARE ASSUMED TO ELROY. Admission Note Report Given to: Transported by: Wheelchair X Stretcher Transported with: X Nurse Transporter X Patent IV X O2 X Assistant Business Manager Location: ICU X MS2
--- NOTE | 2019-09-16 14:22 | NUR ---
LAB AT BEDSIDE
[2019-09-16 14:27] VITALS: BP 137/93
--- NOTE | 2019-09-16 14:30 | NUR ---
PT REMINDED TO HAVE SPOUSE BRING IN HOME MEDICATION LIST SO PHARMACY CAN VERIFY MED REC PER CONSULT.
[2019-09-16 15:10] VITALS: BP 120/59
--- NOTE | 2019-09-16 15:10 | NUR ---
PT REPORTS MIDSTERNAL CHEST PRESSURE RATING 4/10 ON THE PAIN SCALE;VS OBTAINED BP 120/59 HR 78;TABITHA ANRP NOTIFIED AND NEW ORDER FOR EKG AND NITRO PATCH OBTAINED;PT NOTIFIED OF ORDERS AND VERBALIZES UNDERSTANDING;WILL CONTINUE TO MONITOR
--- NOTE | 2019-09-16 15:35 | NUR ---
PT RESTING IN SUPINE POSITION;RESPIRATIONS EVEN AND UNLABORED ON RA;PT REPORTS CHEST PAIN HAS DECREASED BUT STILL "FAINT", NITRO PASTE APPLIED TO RIGHT CHEST;IV SITE PATENT;TELE MONITORING IN PLACE;PT DENIES ANY ADDITIONAL NEEDS AT THIS TIME AND IS ENCOURAGED TO CALL FOR ASSISTANCE IF NEEDED;CALL LIGHT IN REACH;WILL CONTINUE TO MONITOR
[2019-09-16] MEDS ORDERED: FLONASE AL50 MCG/ACT IN (16:18)
[2019-09-16] MEDS ORDERED: EPIPEN 2-P0.3 MG/0.3 IM (16:19)
[2019-09-16] MEDS ORDERED: MECLIZINE25 MG PO (16:21)
[2019-09-16] MEDS ORDERED: CLOPIDOGREL75 MG PO (16:22)
[2019-09-16] MEDS ORDERED: LISINOP/HCTZ1 TAB PO (16:22)
[2019-09-16] MEDS ORDERED: DITROPAN5 MG/TA1 PO (16:23)
[2019-09-16] MEDS ORDERED: ALBUTERO1 IN (16:26)
[2019-09-16] MEDS ORDERED: OMEPRAZOLE DR40 MG PO (16:26)
[2019-09-16] MEDS ORDERED: PROVENTIL0.083 % IN (16:27)
[2019-09-16] MEDS ORDERED: NITROSTAT0.4 MG SL (16:28)
--- NOTE | 2019-09-16 16:59 | NUR ---
PT REPORTS CHEST PAIN HAS BEEN RELEIVED AT THIS TIME RATING 0/10 ON THE PAIN SCALE;RESPIRATIONS EVEN AND UNLABORED ON RA;TELE MONITORING IN PLACE;IV SITE PATENT;MILK PROVIDED PER REQUEST;PT DENIES ANY ADDITIONAL NEEDS;ENCOURAGED TO CALL FOR ASSISTANCE IF NEEDED;FALL PRECAUTIONS IN PLACE WITH CALL LIGHT IN REACH;WILL CONTINUE TO MONITOR
--- NOTE | 2019-09-16 17:07 | NUR ---
HOME MEDICATIONS SENT TO PHARMACY UNTIL D/C.
--- NOTE | 2019-09-16 17:30 | NUR ---
RT TEREZA AT [facility] OBTAINING EKG.
[2019-09-16 18:55] VITALS: BP 121/62
--- NOTE | 2019-09-16 21:13 | NUR ---
UPON ENTERING ROOM PT FOUND SITTING UP IN CHAIR. APPEARS COMFORTABLE AND IN NO APPARENT DISTRESS. RESPIRATIONS ARE REGULAR AND UNLABORED. PHYSICAL ASSESMENT COMPLETE AT THIS TIME. SCHEDULED MED(S) ADMINISTERED, SEE E-MAR. PLAN OF CARE REVIEWED, PT DENIES QUESTIONS, VERBALIZES UNDERSTANDING. DENIES NEEDS AT THIS TIME. ITEMS WITHIN REACH, BED LOCKED IN LOW POSITION W/ BEDRAILS UP X2. CALL JOHNSON WITHIN REACH, AGREES TO CALL PRN.
[2019-09-16 23:30] VITALS: BP 98/60
--- NOTE | 2019-09-17 00:05 | NUR ---
NIBP 98/50, PT C/O HEADACHE AND HEART BURN. NITRO REMOVED FROM CHEST WALL AND WIPED OFF.
--- NOTE | 2019-09-17 02:01 | NUR ---
PT APPEARS TO BE SLEEPING COMFORTABLY, NO APPARENT DISTRESS, RESPIRATIONS REGULAR AND UNLABORED. CALL JOHNSON REMAINS WITHIN REACH.
[2019-09-17 03:40] VITALS: BP 110/64
[2019-09-17 05:08] LABS: HEMATOCRIT 38.5 % (37.0-47.0); HEMOGLOBIN 12.1 g/dl (12.0-16.0); IMMATURE GRANULOCYTES 0.3 % (0.0-5.0); MEAN CELL VOLUME 83.5 fL CALC (80.0-100.0); MEAN CORPUSCULAR HGB 26.2 pG CALC (26.0-32.0); MEAN CORPUSCULAR HGB CONC 31.4 g/dL CAL (32.0-36.0); NEUT# 3.97 thou/uL (2.00-7.15); RED BLOOD COUNT 4.61 mill/uL (4.20-5.60); RED CELL DISTRI WIDTH 14.7 % (11.5-15.5)
[2019-09-17 05:38] LABS: ALBUMIN 4.1 g/dL (3.2-5.0); ALKALINE PHOSPHATASE 83 u/l (38-126); ANION GAP 12 (6-22 (CALC)); BILIRUBIN, TOTAL 0.4 mg/dL (0.0-1.4); BUN 28 mg/dL (8-23); BUN/CREATININE RATIO 30 (12-20 (CALC)); CARBON DIOXIDE 24 mmol/l (22-30); CHLORIDE 102 mmol/l (95-108); CREATININE 0.9 mg/dL (0.5-1.0); GFR > 60 ML/MIN (>=60 (CALC)); GFR FOR AFR.AMER. > 60 ML/MIN (>=60 (CALC)); POTASSIUM 4.4 mmol/l (3.5-5.1); SGOT/AST 35 u/l (9-36); SODIUM 134 mmol/l (137-146); TOTAL PROTEIN 7.3 g/dL (6.3-8.2)
--- NOTE | 2019-09-17 07:00 | NUR ---
REPORT RECEIVED FROM SHERLY ANDREWS;PT APPEARS TO BE SLEEPING IN SEMI FOWLERS POSITION;RESPIRATIONS EVEN AND UNLABORED ON RA;NO S/S OF DISTRESS NOTED;TELE MONITORING IN PLACE;ALL SAFETY PRECAUTIONS IN PLACE INCLUDING SEIZURE PRECAUTIONS;BED IN THE LOWEST POSITION WITH CALL LIGHT IN REACH;WILL CONTINUE TO MONITOR
[2019-09-17 07:24] VITALS: BP 146/96
--- NOTE | 2019-09-17 07:24 | NUR ---
PT REPORTS MIDSTERNAL CHEST PAIN RATING 7/10 ON THE PAIN SCALE. VS OBTAINED RESULTING IN BP 146/96 HR 100;OXYGEN @ 2L VIA NC APPLIED FOR COMFORT; 0.5 OF NITRO PASTE PROVIDED TO RIGHT UPPER CHEST, PT DID REFUSE 0600 DOSE BUT APPLIED AT THIS TIME;EKG TO BE OBTAINED BY FRANK LEON;WILL CONTINUE TO MONITOR
--- NOTE | 2019-09-17 07:38 | NUR ---
NOTIFIED OF CHEST PAIN AND EKG AT THIS TIME, NO NEW ORDERS RECEIVED;WILL CONTINUE TO MONITOR
[2019-09-17 07:57] VITALS: BP 123/81
--- NOTE | 2019-09-17 08:00 | NUR ---
PT RESTING IN SEMI FOWLERS POSITION;A&O X3, VS OBTAINED AND ASSESSMENT COMPLETED;PT REPORTS CHEST PAIN HAS SUBSIDED AT THIS TIME AFTER NITRO PASTE ADMINISTRATION TO RIGHT UPPER CHEST, PAIN SCALE AND REPORTING EDUCATED;RESPIRATIONS EVEN AND UNLABORED ON RA,CLEAR LUNG SOUNDS;ABDOMEN SOFT ON PALPATION AND ACTIVE IN ALL 4 QUADRANTS;STRONG PEDAL PULSES;SKIN INTACT;TELE MONITORING IN PLACE;#20G TO LAC FLUSHED AND PATENT,SITE APPEARS HEALTHY;MYLANTA TO BE ORDERED BY TABITHA HE;PT DENIES ANY ADDITIONAL NEEDS AND IS ENCOURAGED TO CALL FOR ASSISTANCE IF NEEDED;FALL AND SEIZURE PRECAUTIONS IN PLACE;CALL LIGHT IN REACH;WILL CONTINUE TO MONITOR
--- NOTE | 2019-09-17 11:09 | NUR ---
AT BEDSIDE DISCUSSING POC WITH PT AND SPOUSE,PT VERBALIZES UNDERSTANDING.
[2019-09-17 11:20] VITALS: BP 116/66
--- NOTE | 2019-09-17 11:35 | NUR ---
ALL DISCHARGE INSTRUCTIONS PROVIDED AT THIS TIME;PT INSTRUCTED TO F/U WITH PCP AND FDR.DEREK AND VERBALIZES UNDERSTANDING;PT DENIES ANY ADDITIONAL QUESTIONS OR NEEDS;IV SITE REMOVED WITH CATHETER INTACT AND TELE MONITORING D/C AT THIS TIME;HOME MEDICATIONS PROVIDED BACK TO PT FROM PHARMACY FOR D/C HOME;WHEELCHAIR TO BE PROVIDED FOR D/C HOME;[facility] TO TRANSPORT PT HOME, AWAITING HIS ARRIVAL;WILL CONTINUE TO MONITOR
--- NOTE | 2019-09-17 12:46 | NUR ---
Discharge instructions given. Patient verbalizes understanding of same. Discharged in stable condition via Wheelchair to Home with family. All belongings sent with pt. PT TRANSPORTED TO [facility] IN STABLE CONDITION VIA WHEELCHAIR ACCOMPANIED BY THIS WRITTER FOR D/C HOME. SON TO TRANSPORT PT HOME.ALL HOME MEDICATIONS LEFT WITH PT.
== END 2019-09-17 12:46 | disposition home or self-care (01) ==
LOC: ED 09:33 → ED-I 11:30 → ED 11:39 → ED-I 11:40 → MS2 11:40
PROVIDERS: Emergency Medicine; Nurse Practitioner Family; ADMIT Internal Medicine; ATTEND Internal Medicine
DX: K21.9 Gastro-esophageal reflux disease without esophagitis (principal); I25.10 Atherosclerotic heart disease of native coronary artery without angina pectoris; I10 Essential (primary) hypertension; J45.909 Unspecified asthma, uncomplicated; I25.2 Old myocardial infarction; Z95.5 Presence of coronary angioplasty implant and graft; T50.916A Underdosing of multiple unspecified drugs, medicaments and biological substances, initial encounter; Z91.128 Patient's intentional underdosing of medication regimen for other reason; Z20.828 Contact with and (suspected) exposure to other viral communicable diseases; R07.9 Chest pain, unspecified
CPT/HCPCS: G0378; J1650

== ENCOUNTER 2020-03-20 16:11 | Emergency (ER) | payer MEDICARE, MEDICAID ==
[~2020-03-20] VITALS: Ht 152.4 cm; Wt 72.7 kg
[~2020-03-20 16:11] MED LIST changes: +ALBUTERO1 IN; +CLOPIDOGREL75 MG PO; +DITROPAN5 MG/TA1 PO; +EPIPEN 2-P0.3 MG/0.3 IM; +FLONASE AL50 MCG/ACT IN; +NITROSTAT0.4 MG SL
[2020-03-20] MEDS ORDERED: AMOX/K CLAV875 M1 PO (17:48)
[2020-03-20 17:57] VITALS: BP 119/66
== END 2020-03-20 17:59 | disposition home or self-care (01) ==
LOC: ED 16:11
DX: H66.91 Otitis media, unspecified, right ear (principal); J45.909 Unspecified asthma, uncomplicated; Z20.818 Contact with and (suspected) exposure to other bacterial communicable diseases; Z20.822 Contact with and (suspected) exposure to COVID-19

== ENCOUNTER 2020-03-26 10:00 | Emergency (ER) | payer MEDICARE, MEDICAID ==
[~2020-03-26] VITALS: Ht 152.4 cm; Wt 72.0 kg
[~2020-03-26 10:00] MED LIST changes: +AMOX/K CLAV875 M1 PO
[2020-03-26 11:09] LABS: HEMATOCRIT 39.9 % (37.0-47.0); HEMOGLOBIN 12.4 g/dl (12.0-16.0); IMMATURE GRANULOCYTES 0.2 % (0.0-5.0); MEAN CORPUSCULAR HGB 26.1 pG CALC (26.0-32.0); MEAN CORPUSCULAR HGB CONC 31.1 g/dL CAL (32.0-36.0); NEUT# 3.19 thou/uL (2.00-7.15); RED BLOOD COUNT 4.75 mill/uL (4.20-5.60)
[2020-03-26 11:20] LABS: ALBUMIN 4.3 g/dL (3.2-5.0); ALKALINE PHOSPHATASE 86 u/l (38-126); BILIRUBIN, TOTAL 0.3 mg/dL (0.0-1.4); BUN 36 mg/dL (8-23); BUN/CREATININE RATIO 37 (12-20 (CALC)); CHLORIDE 99 mmol/l (95-108); GFR 55 ML/MIN (>=60 (CALC)); GFR FOR AFR.AMER. > 60 ML/MIN (>=60 (CALC)); SGOT/AST 35 u/l (9-36); SODIUM 137 mmol/l (137-146); TOTAL PROTEIN 8.5 g/dL (6.3-8.2)
[2020-03-26 11:22] LABS: ANION GAP 13 (6-22 (CALC)); CARBON DIOXIDE 29 mmol/l (22-30)
[2020-03-26 11:33] LABS: MYOGLOBIN 78 ng/mL (0 - 62)
[2020-03-26 12:07] LABS: URINE BILIRUBIN - DIPSTICK NEGATIVE (NEGATIVE); URINE BLOOD DIPSTICK SMALL (NEGATIVE); URINE COLOR YELLOW; URINE GLUCOSE - DIPSTICK NEGATIVE (NEGATIVE); URINE KETONE NEGATIVE (NEGATIVE); URINE LEUK ESTERASE NEGATIVE (NEGATIVE); URINE NITRITE - DIPSTICK NEGATIVE (Negative); URINE PROTEIN - DIPSTICK NEGATIVE (NEG-TRACE); URINE UROBILINOGEN - DIPSTICK 0.2 E.U./dL (0.2)
[2020-03-26 12:23] LABS: URINE RBC 0-2 RBC/hpf (0-5)
[2020-03-26 12:24] LABS: URINE SQUAMOUS EPITHELIAL CELL FEW EPI/hpf (0-FEW)
[2020-03-26] MEDS ORDERED: ONDANSETRON4 MG PO (12:38)
[2020-03-26] MEDS ORDERED: MECLIZINE25 MG PO (12:38)
[2020-03-26 13:27] VITALS: BP 116/65
== END 2020-03-26 13:43 | disposition home or self-care (01) ==
LOC: ED 10:00
PROVIDERS: Emergency Medicine
DX: H83.09 Labyrinthitis, unspecified ear (principal); I25.2 Old myocardial infarction

== ENCOUNTER 2020-05-09 05:12 | Observation (INO) | payer MEDICARE, MEDICAID ==
[~2020-05-09] VITALS: Ht 152.4 cm; Wt 75.0 kg
[~2020-05-09 05:12] MED LIST changes: +ONDANSETRON4 MG PO
--- NOTE | 2020-05-09 05:12 | NUR ---
PT TO ROOM 10 BY EMS. PT STATES SHE HAD CHEST PAIN THAT WOKE HER UP ABOUT 90 MINUTES AGO. PT TOOK 2 OF HER NTG WITH COMPLETE RELIEF.
--- NOTE | 2020-05-09 05:36 | NUR ---
PT MEDICATED PER ORDER WITH ALLERGY TO [facility] AND CLARIFIED WITH PROVIDER DR NOVOA. PT REPORTS ALLERGY WAS REPORTED A CHILD. PT AGREEABLE TO ADMINISTRATION AND TOLERATED WELL.
[2020-05-09] MEDS ORDERED: FLOVENT HF110 MCG/AC NAB (05:39)
[2020-05-09] MEDS ORDERED: NASONEX50 MCG/ACT NAB (05:40)
[2020-05-09] MEDS ORDERED: ATORVASTATIN CA20 MG PO (05:40)
[2020-05-09] MEDS ORDERED: METOPROL TAR25 MG PO (05:41)
[2020-05-09] MEDS ORDERED: NEXIUM40 MG PO (05:41)
--- NOTE | 2020-05-09 06:20 | NUR ---
PT RESTING ON STRETCHER IN NO APPARENT DISTRESS. RESP EVEN AND UNLABORED. SKIN WARM AND DRY. ADVISED OF CONT WAIT TIME FOR RESULTS. VERABLIZED UNDERSTANDING. PT PROVIDED MASK PER GORDON. CALL LIGHT WITHIN REACH.
[2020-05-09 06:35] LABS: HEMATOCRIT 36.2 % (37.0-47.0); HEMOGLOBIN 11.2 g/dl (12.0-16.0); MEAN CELL VOLUME 85.6 fL CALC (80.0-100.0); MEAN CORPUSCULAR HGB 26.5 pG CALC (26.0-32.0); MEAN CORPUSCULAR HGB CONC 30.9 g/dL CAL (32.0-36.0); NEUT# 1.99 thou/uL (2.00-7.15); RED BLOOD COUNT 4.23 mill/uL (4.20-5.60); RED CELL DISTRI WIDTH 15.5 % (11.5-15.5)
[2020-05-09 06:42] LABS: ALKALINE PHOSPHATASE 84 u/l (38-126); AMYLASE 66 u/l (30-110); ANION GAP 12 (6-22 (CALC)); BILIRUBIN, TOTAL 0.4 mg/dL (0.0-1.4); BUN 33 mg/dL (8-23); BUN/CREATININE RATIO 32 (12-20 (CALC)); CARBON DIOXIDE 25 mmol/l (22-30); CHLORIDE 101 mmol/l (95-108); GFR 55 ML/MIN (>=60 (CALC)); GFR FOR AFR.AMER. > 60 ML/MIN (>=60 (CALC)); LIPASE 231 u/l (23-300); POTASSIUM 4.3 mmol/l (3.5-5.1); SGOT/AST 25 u/l (9-36); SODIUM 134 mmol/l (137-146)
[2020-05-09 06:46] LABS: ALBUMIN 3.4 g/dL (3.2-5.0); TOTAL PROTEIN 6.4 g/dL (6.3-8.2)
--- NOTE | 2020-05-09 06:53 | NUR ---
REPORT TO TALHA DUBOIS.
[2020-05-09 06:54] LABS: MYOGLOBIN 37 ng/mL (0 - 62)
[2020-05-09 06:58] LABS: D-DIMER 0.6 mg/L (0.19-0.60)
--- NOTE | 2020-05-09 07:20 | NUR ---
PT WAS TRENDING IN LOW SATS AROUND 89%-91% PT WAS PLACED ON 2 L OF O2 NC.
--- NOTE | 2020-05-09 07:32 | NUR ---
PT CURRENTLY DENIES ANY CHEST PAIN, SHE IS UPDATED ON TREATMENT RESULTS. PT WANTED TO USE THE BR AND BEDSIDE CAMMODE PROVIDED. SHE IS RECONNECTED BACK TO MONITORING EQUIPMENT AND SHE DENIES ANY OTHER NEEDS AT THIS TIME.
--- NOTE | 2020-05-09 08:47 | NUR ---
D/C NITRO PASTE PATCH SINCE DECREASE IN BP WAS NOTED.
--- NOTE | 2020-05-09 09:30 | NUR ---
MEDICATED PT WITH HER 0900 MEDS. BP MEDS NOT GIVEN BECAUSE OF LOW BP. PT DENIES ANY NEEDS AT THIS TIME
--- NOTE | 2020-05-09 10:30 | NUR ---
PT RESTING WITH EYES CLOSED
--- NOTE | 2020-05-09 11:30 | NUR ---
PT DENIES ANY NEEDS AT THIS TIME. CALL LIGHT WITHIN REACH. WAIT TIME EXPLAINED TO PT AND SHE VERBALIZED UNDERSTANDING.
--- NOTE | 2020-05-09 12:22 | NUR ---
GAVE REPORT TO RUTH
--- NOTE | 2020-05-09 12:28 | NUR ---
PATIENT RECEIEVED FROM NURSE TALHA RN AT THIS TIME. PATIENT ORIENTED TO ROOM AND SURROUNDINGS TO INCLUDE CALL LIGHT AND BEDCONTROLS AT THIS TIME. PATIENT EDUCATED ON ASKING FOR ASSISTANCE AND SHOWN HOW TO OPERATED CALL LIGHT. PUBLIC SCHOOL TEACHER DONE. LUNG SOUNDS ARE CLEAR THROUGHOUT ALL LUNG BEST, BOWEL SOUNDS PRESENT IN ALL FOUR QUADRANTS AND LAST BOWEL MOVEMENT PER PATIENT WAS ON 05/09/20 IN THE EARLY AM. PATIENT DENIES ANY CHEST PAIN AT THIS TIME AND NOW NOTED EDEMA NOTED ANYWHERE AT THIS TIME. TRACI VERBALIZES UNDERSTANDING OF ORIENTATION TO ROOM AND REASONS FOR ADMISSION AT THIS TIME. PATIENT IS ON TELE MONITOR AND IS BEING MONITORED BY ED. PATIENT IS ON 02 AT 2 LITERS AND SPO2 AT THIS TIME IS 99%. PATIENT DENIES ANY SHORTNESS OF BREATH AT THIS TIME. SIDERAILS ARE UP CALL LIGHT IS WITHIN REACH AND PERSONAL ITEMS WITHIN REACH.
--- NOTE | 2020-05-09 12:30 | NUR ---
PT TRANSPORTED UP TO [facility] SURG STABLE AND IN NO DISTRESS. CARE ASSUMED TO DICKSON Admission Note Report Given to: RUTH Transported by: Wheelchair X Stretcher Transported with: X Nurse Transporter X Patent IV X O2 X Survey Research Associate Location: ICU X MS2
[2020-05-09 15:00] VITALS: BP 105/70
--- NOTE | 2020-05-09 15:54 | NUR ---
PATIENT RESTING IN BED AT THIS TIME PATIENT DENEIS ANY PAIN OR NEEDS CURRENTLY PATIENT DENIES ANY SHORTNESS OF BREATH AND O2 IS ON 02 AT 2 LITERS. SIDERAILS ARE UP CALL LIGHT AND PERSONAL ITEMS ARE WITHIN REACH.
[2020-05-09 19:00] VITALS: BP 103/61
--- NOTE | 2020-05-09 20:30 | NUR ---
PATIENT RESTING IN BED AT THIS TIME WATCHING TV. O2 VIA NASAL CANNULA IN PLACE AT 2LPM. O2 SATS 96%. PATIENT WITH NO COMPLAINTS AT THIS TIME. DENIES ANY CHEST PAIN, PALPATATIONS, OR SOB. SALINE LOCK TO LAC INTACT AND HEALTHY AT THIS TIME. LUNGS ARE CLEAR. NO PERIPHERAL EDEMA NOTED. PULSES ARE PALPABLE. PATIENT ON ISOLATION IN NEG PRESSURE ROOM. CALL LIGHT IN REACH. WILL CONT TO MONITOR.
[2020-05-10] VITALS: BP 115/76
--- NOTE | 2020-05-10 01:00 | NUR ---
PATIENT RESTING IN BED AT THIS TIME WITH O2 VIA NASAL CANNULA IN PLACE. RESPS ARE EVEN AND UNLABORED. APPEARS SLEEPING AT THIS TIME. CALL LIGHT IN REACH. WILL CONT TO MONITOR.
[2020-05-10 04:00] VITALS: BP 110/69
--- NOTE | 2020-05-10 05:04 | NUR ---
PATIENT RESTING IN BED AT THIS TIME-RESPS ARE EVEN AND UNLABORED. EYES ARE CLOSED. O2 VIA NASAL CANNULA IN PLACE. TELE MONITOR IN PLACE. CALL LIGHT IN REACH. WILL CONT TO MONITOR.
[2020-05-10 06:18] LABS: HEMATOCRIT 39.2 % (37.0-47.0); IMMATURE GRANULOCYTES 0.2 % (0.0-5.0); MEAN CELL VOLUME 85.8 fL CALC (80.0-100.0); MEAN CORPUSCULAR HGB 26.3 pG CALC (26.0-32.0); MEAN CORPUSCULAR HGB CONC 30.6 g/dL CAL (32.0-36.0); NEUT# 1.61 thou/uL (2.00-7.15); RED BLOOD COUNT 4.57 mill/uL (4.20-5.60); RED CELL DISTRI WIDTH 15.5 % (11.5-15.5)
[2020-05-10 06:28] LABS: ALBUMIN 3.7 g/dL (3.2-5.0); ALKALINE PHOSPHATASE 94 u/l (38-126); ANION GAP 10 (6-22 (CALC)); BILIRUBIN, TOTAL 0.4 mg/dL (0.0-1.4); BUN 28 mg/dL (8-23); BUN/CREATININE RATIO 34 (12-20 (CALC)); C-REACTIVE PROTEIN 0.7 mg/dL (0-0.9); CARBON DIOXIDE 27 mmol/l (22-30); CHLORIDE 102 mmol/l (95-108); CHOLESTEROL HDL RATIO 3.5 (<4.4 (CALC)); CREATININE 0.8 mg/dL (0.5-1.0); GFR > 60 ML/MIN (>=60 (CALC)); GFR FOR AFR.AMER. > 60 ML/MIN (>=60 (CALC)); HDL CHOLESTEROL 40 mg/dL (>=40); POTASSIUM 4.4 mmol/l (3.5-5.1); SGOT/AST 26 u/l (9-36); SODIUM 135 mmol/l (137-146); TOTAL TRIGLYCERIDES 211 mg/dl (30-149); VLDL CHOLESTROL 42 mg/dl (0-48 (CALC))
[2020-05-10 06:29] LABS: CALCULATED LDLCHOLESTEROL 56 mg/dL (62-129 (CALC)); TOTAL CHOLESTEROL 138 mg/dl (0-199)
--- NOTE | 2020-05-10 07:00 | NUR ---
PT REPORT RECEIVED FROM NIGHT NURSEARJUN.
[2020-05-10 08:17] VITALS: BP 128/69
--- NOTE | 2020-05-10 08:17 | NUR ---
PT WAS FOUND SLEEPING IN BED;PT AROUSED AND IS A&0 X3;VS AND ASSESSMENT WERE COMPLETED;VS WERE WITHIN NORMAL LIMITS;PT HAS NO REPORTS OF PAIN AT THIS TIME;HEART SOUNDS ARE REGULAR IN RATE AND RHYTHM;LUNG SOUNDS ARE CLEAR;RESPIRATIONS ARE EVEN AND UNLABORED ON RA;#20G EMS IV IN LAC IS SL, PATENT AND FREE OF COMPLICATIONS;SCDS ARE IN PLACE;SAFETY PRECAUTIONS IN PLACE;CALL LIGHT WITHIN REACH;BED IN LOWEST POSITION;WILL CONTINUE TO MONITOR.
[2020-05-10 11:32] VITALS: BP 113/71
--- NOTE | 2020-05-10 12:15 | NUR ---
PT WAS FOUND IN BED EATING LUNCH;PT REPORTS NO PAIN AT THIS TIME;#20G EMS IV IN LAC IS SL, PATENT AND FREE OF COMPLICATIONS;TELE IS IN PLACE READING SR @68BPM;SAFETY PRECAUTIONS IN PLACE;CALL LIGHT WITHIN REACH;BED IN LOWEST POSITION;WILL CONTINUE TO MONITOR.
--- NOTE | 2020-05-10 12:17 | NUR ---
RADIOLOGY AT BEDSIDE;PORTABLE CHEST X-RAY
--- NOTE | 2020-05-10 13:41 | NUR ---
PT WAS GIVEN DISCHARGE PACKET;INSTRUCTIONS WERE GIVEN AND PT EXPRESSED UNDERSTANDING AND HAD NO FURTHER QUESTIONS;SIGNATURE OBTAINED;IV WAS REMOVED;CATHETER WAS INTACT WITH NO ISSUES.
--- NOTE | 2020-05-10 13:47 | NUR ---
Discharge instructions given. Patient verbalizes understanding of same. Discharged in stable condition via Wheelchair to Home with family. All belongings sent with pt. PT TRANSPORTED TO [facility] IN STABLE CONDITION VIA WHEELCHAIR ACCOMPANIED BY LEMUEL DALAL.ALL BELONGINGS LEFT WITH PT.
== END 2020-05-10 13:48 | disposition home or self-care (01) ==
LOC: ED 05:12 → ED-I 05:51 → ED 05:51 → ED-I 08:08 → ED 08:21 → MS2 08:22
PROVIDERS: Family Medicine; ADMIT Internal Medicine; ATTEND Internal Medicine
DX: R07.2 Precordial pain (principal); U07.1 COVID-19; I25.10 Atherosclerotic heart disease of native coronary artery without angina pectoris; I10 Essential (primary) hypertension; J45.909 Unspecified asthma, uncomplicated; F41.0 Panic disorder [episodic paroxysmal anxiety]; I25.2 Old myocardial infarction; Z79.02 Long term (current) use of antithrombotics/antiplatelets; Z95.5 Presence of coronary angioplasty implant and graft
CPT/HCPCS: J1650

== ENCOUNTER 2020-05-15 04:05 | Emergency (ER) | payer MEDICARE, MEDICAID ==
[~2020-05-15] VITALS: Ht 152.4 cm; Wt 74.0 kg
[~2020-05-15 04:05] MED LIST changes: +ATORVASTATIN CA20 MG PO; +FLOVENT HF110 MCG/AC NAB; +METOPROL TAR25 MG PO; +NASONEX50 MCG/ACT NAB; +NEXIUM40 MG PO
[2020-05-15 04:53] LABS: URINE BILIRUBIN - DIPSTICK NEGATIVE (NEGATIVE); URINE BLOOD DIPSTICK SMALL (NEGATIVE); URINE CLARITY CLEAR; URINE COLOR YELLOW; URINE GLUCOSE - DIPSTICK NEGATIVE (NEGATIVE); URINE KETONE NEGATIVE (NEGATIVE); URINE NITRITE - DIPSTICK NEGATIVE (Negative); URINE PH 5.5 (4.5-8.0); URINE PROTEIN - DIPSTICK NEGATIVE (NEG-TRACE); URINE SPECIFIC GRAVITY 1.025; URINE UROBILINOGEN - DIPSTICK 0.2 E.U./dL (0.2)
[2020-05-15 05:07] LABS: URINE LEUK ESTERASE NEGATIVE (Negative)
[2020-05-15 05:14] LABS: URINE BACTERIA FEW hpf; URINE EPITHELIAL CELLS MANY EPI/hpf (0-FEW); URINE WBC 0-2 WBC/hpf (0-5)
[2020-05-15] MEDS ORDERED: ORPHENADRINE100 MG PO (06:11)
[2020-05-15] MEDS ORDERED: IBUPROFEN600 MG PO (06:11)
[2020-05-15 06:30] VITALS: BP 106/63
== END 2020-05-15 07:45 | disposition home or self-care (01) ==
LOC: ED 04:05
PROVIDERS: Emergency Medicine
DX: M47.817 Spondylosis without myelopathy or radiculopathy, lumbosacral region (principal); I10 Essential (primary) hypertension; J45.909 Unspecified asthma, uncomplicated; I25.2 Old myocardial infarction; Z86.16 Personal history of COVID-19

== ENCOUNTER 2020-05-21 13:47 | Inpatient (IN) | payer MEDICARE, MEDICAID ==
[~2020-05-21] VITALS: Ht 152.4 cm; Wt 71.0 kg
[~2020-05-21 13:47] MED LIST changes: +IBUPROFEN600 MG PO; +ORPHENADRINE100 MG PO
--- NOTE | 2020-05-21 14:14 | NUR ---
Reassessment of patient completed. No distress noted.
[2020-05-21 14:59] LABS: HEMATOCRIT 40.8 % (37.0-47.0); IMMATURE GRANULOCYTES 0.4 % (0.0-5.0); MEAN CELL VOLUME 82.1 fL CALC (80.0-100.0); MEAN CORPUSCULAR HGB 26.2 pG CALC (26.0-32.0); MEAN CORPUSCULAR HGB CONC 31.9 g/dL CAL (32.0-36.0); NEUT# 5.08 thou/uL (2.00-7.15); RED BLOOD COUNT 4.97 mill/uL (4.20-5.60)
--- NOTE | 2020-05-21 15:07 | NUR ---
Reassessment of patient completed. No distress noted.
[2020-05-21 15:30] LABS: ALKALINE PHOSPHATASE 94 u/l (38-126); ANION GAP 12 (6-22 (CALC)); BUN 44 mg/dL (8-23); BUN/CREATININE RATIO 41 (12-20 (CALC)); CARBON DIOXIDE 28 mmol/l (22-30); CHLORIDE 97 mmol/l (95-108); CREATININE 1.1 mg/dL (0.5-1.0); GFR 49 ML/MIN (>=60 (CALC)); GFR FOR AFR.AMER. 59 ML/MIN (>=60 (CALC)); LIPASE 150 u/l (23-300); POTASSIUM 4.1 mmol/l (3.5-5.1); SGOT/AST 35 u/l (9-36); SODIUM 134 mmol/l (137-146); TOTAL PROTEIN 8.2 g/dL (6.3-8.2)
[2020-05-21 15:32] LABS: BILIRUBIN, TOTAL 0.6 mg/dL (0.0-1.4)
--- NOTE | 2020-05-21 15:38 | NUR ---
UP TO BSC FOR URGENT DIARRHEA; STOOL IS GREEN AND LOOSE.
[2020-05-21 15:47] LABS: ACT PARTIAL THROMBO TIME 24.7 SECONDS (20.0-32.5); PROTHROMBIN TIME 9.9 SECONDS (9.0-12.5)
[2020-05-21 15:57] LABS: D-DIMER 0.81 mg/L (0.19-0.60)
--- NOTE | 2020-05-21 16:30 | NUR ---
REPORT CALLED TO SAVAGE DUBOIS.
--- NOTE | 2020-05-21 17:30 | NUR ---
Reassessment of patient completed. No distress noted.
[2020-05-21 17:55] VITALS: BP 97/66
--- NOTE | 2020-05-21 18:06 | NUR ---
TRANSPORTED TO FLOOR ON TELE
--- NOTE | 2020-05-21 18:10 | NUR ---
PT ARRIVED TO THE FLOOR ON A STREACHER. NOTED SHE IS COVID +. AXOX3, O2 2L WITH A MOIST NON PRODUCTIVE COUGH. DENIES PAIN , DENIES NAUSEA DENIES VOMITING. INTO BED WITH ASST. ORIENTED TO THE CALL LIGHT , BED, TV, AND TELEPHONE. PT GIVEN EVENING MEAL, NO ISSUES EATTING. . TEMP 97 B/P 100/65 PL 75 RESP 18 . REPOSITIONED FOR COMFORT, SIDE RAILS UP CALL LIGHT IN REACH, BED LOCKED IN LOW POSITION, ALL SAFTY MEASURES IN PLACE. WILL CONTINUE TO MONIOTR THE PATIENT. NOTED LEILA.
[2020-05-21 20:00] VITALS: BP 89/60
--- NOTE | 2020-05-21 23:42 | NUR ---
1905 SBAR RECEIVED FROM [place]. PATIENT LAYING IN BED PLAYING GAME ON PHONE. CALL LIGHT WITHIN REACH.
[2020-05-22] VITALS (7 sets, daily range): BP systolic 99–138; BP diastolic 60–80
--- NOTE | 2020-05-22 00:39 | NUR ---
RESTING IN BED EYES CLOSED. BED IN LOW POSITION, CALL LIGHT WITHIN REACH.
[2020-05-22 05:29] LABS: HEMATOCRIT 38.8 % (37.0-47.0); HEMOGLOBIN 12.2 g/dl (12.0-16.0); IMMATURE GRANULOCYTES 0.5 % (0.0-5.0); MEAN CELL VOLUME 82.7 fL CALC (80.0-100.0); MEAN CORPUSCULAR HGB CONC 31.4 g/dL CAL (32.0-36.0); NEUT# 2.95 thou/uL (2.00-7.15); RED BLOOD COUNT 4.69 mill/uL (4.20-5.60); RED CELL DISTRI WIDTH 15.1 % (11.5-15.5)
[2020-05-22 05:58] LABS: ANION GAP 12 (6-22 (CALC)); BUN 39 mg/dL (8-23); BUN/CREATININE RATIO 47 (12-20 (CALC)); C-REACTIVE PROTEIN 5.3 mg/dL (0-0.9); CARBON DIOXIDE 27 mmol/l (22-30); CHLORIDE 99 mmol/l (95-108); CREATININE 0.8 mg/dL (0.5-1.0); GFR > 60 ML/MIN (>=60 (CALC)); GFR FOR AFR.AMER. > 60 ML/MIN (>=60 (CALC)); POTASSIUM 4.8 mmol/l (3.5-5.1); SODIUM 133 mmol/l (137-146)
--- NOTE | 2020-05-22 07:36 | NUR ---
NOTIFIED DR. IBANEZ THAT CTA CHEST WAS NOT PERFORMED YESTERDAY EVENING. RE: DDIM 0.81, CREAT 1.1 AND BUN 44 ON 05/21. THIS MORNING DDIM INCREASED TO 1.20, KIDNEY FUNCTION IMPROVED CREAT 0.8, BUN 39 AND GFR >60. KENY IN RADIOLOGY NOTIFIED THAT PHYSICIAN SAYS TO PERFORM EXAM. ONCOMING NURSE TAMIKA NOTIFIED WELL.
--- NOTE | 2020-05-22 08:20 | NUR ---
PT RESTING IN THE BED AXOX3. O2 NC IN PLACE, NO SOB NOTED. PT DENIES PAIN. EDUCATED ON CTA. REPOSITIOEND FOR COMFORT, SIDE RAISL UP CALL LIGHT IN REACH BED LOCKED IN LOW POSITION, ALL SAFTY MEASURES IN PLACE. WILL CONTINUE TO MONITOR THE PATIENT.
--- NOTE | 2020-05-22 09:55 | NUR ---
PT TAKEN TO CT.
--- NOTE | 2020-05-22 11:58 | NUR ---
PT BACK FROM CTA. SITTING UP IN THE BEDSIDE CHAIR. O2 IN PLACE IV INFUSING. NO RESP DISTRESS NOTED AT THIS TIME. CALL LIGHT IN REACH, WILL CONTINUE TO MONIOTR THE PATIENT.
--- NOTE | 2020-05-22 15:11 | NUR ---
PT RESTING IN THE BED SIDE CHAIR. NO DISTRESS NOTED. PT ABLE TO SHOW CORRECT USE OF ISSU.
--- NOTE | 2020-05-22 16:41 | NUR ---
PT RESTING IN THE BED SIDE CHAIR NO DISTRESS NOTED AT THIS TIME. CALL LIGHT IN REACH, WILL CONTINUE TO MONIOTR THE PATIENT.
--- NOTE | 2020-05-22 20:30 | NUR ---
PATIENT RESTING IN BED AT THIS TIME WITH O2 VIA NASAL CANNULA AT 3LPM IN PLACE. AWAKE ALERT AND ORIENTEDX3 WITH NON PRODUCTIVE COUGH. TELE MONITOR IN PLACE. IVF PATENT AND INFUSING VIA RIGHT AC SITE ORDERED. INSTRUCTED PATIENT ON USE OF IS AND FLUTTER VALVE AT BEDSIDE. ON ISOLATION IN NEG PRESSURE ROOM FOR COVID. PROVIDED WITH HS SNACK OF MILK AND CRACKERS. SAFETY PRECAUTIONS REINFORCED. CALL LIGHT IN REACH. WILL CONT TO MONITOR.
[2020-05-23] VITALS (7 sets, daily range): BP systolic 100–123; BP diastolic 62–72
--- NOTE | 2020-05-23 00:51 | NUR ---
PATIENT RESTING IN BED POSITIONED ON LEFT SIDE WITH EYES CLOSED. RESPS ARE EVEN AND UNLABORED. O2 VIA NASAL CANNULA IN PLACE AT 3LPM. TELE MONITOR IN PLACE. IVF NS PATENT AND INFUSING VIA RAC SITE AT 80CC/HR. CALL LIGHT IN REACH. WILL CONT TO MONITOR.
--- NOTE | 2020-05-23 05:15 | NUR ---
RECIEVED CALL FROM JASMIN IN ER THAT PATIENT TELE WAS AT 37-RESPONDED TO PATIENT ROOM AND PATIENT APPEARED SLEEPING. RESP ARE EVEN AND UNLABORED. PATIENT WAKEN AND TELE RATE WENT UP TO 55 PER JASMIN IN ER. IVF PATENT AND INFUSING AT 80CC/HR. PATIENT WITH NO COMPLAINTS AT THIS TIME. CALL LIGHT IN REACH. WILL CONT TO MONITOR.
[2020-05-23 06:08] LABS: HEMATOCRIT 34.7 % (37.0-47.0); HEMOGLOBIN 10.9 g/dl (12.0-16.0); IMMATURE GRANULOCYTES 0.5 % (0.0-5.0); MEAN CELL VOLUME 83.4 fL CALC (80.0-100.0); MEAN CORPUSCULAR HGB 26.2 pG CALC (26.0-32.0); MEAN CORPUSCULAR HGB CONC 31.4 g/dL CAL (32.0-36.0); NEUT# 8.55 thou/uL (2.00-7.15); RED BLOOD COUNT 4.16 mill/uL (4.20-5.60); RED CELL DISTRI WIDTH 15.1 % (11.5-15.5)
[2020-05-23 06:33] LABS: ALKALINE PHOSPHATASE 73 u/l (38-126); ANION GAP 11 (6-22 (CALC)); BILIRUBIN, TOTAL 0.4 mg/dL (0.0-1.4); BUN 31 mg/dL (8-23); BUN/CREATININE RATIO 37 (12-20 (CALC)); C-REACTIVE PROTEIN 3.2 mg/dL (0-0.9); CARBON DIOXIDE 25 mmol/l (22-30); CHLORIDE 105 mmol/l (95-108); CREATININE 0.8 mg/dL (0.5-1.0); GFR > 60 ML/MIN (>=60 (CALC)); GFR FOR AFR.AMER. > 60 ML/MIN (>=60 (CALC)); POTASSIUM 4.4 mmol/l (3.5-5.1); SGOT/AST 23 u/l (9-36); SODIUM 137 mmol/l (137-146)
[2020-05-23 06:34] LABS: ALBUMIN 2.9 g/dL (3.2-5.0)
--- NOTE | 2020-05-23 07:00 | NUR ---
RECIEVED REPORT FROM SHERLY DÍAZ
--- NOTE | 2020-05-23 07:43 | NUR ---
PT RESTING IN SEMI FOWLERS POSITION. PT IS A/O X3. ASSESSMENT AND VITALS OBATINED. BP 123/72, HR 56, O2 95% ON 3L NC. RESPIRATIONS ARE EVEN AND UNLABORED WITH NO DISTRESS NOTED. LUNG SOUNDS ARE CLEAR. HEART RHYTHM IS NORMAL WITH TELE IN PLACE. BOWEL SOUNDS ARE ACTIVE. RADIAL AND PEDAL PULSES ARE STRONG. #22G IN RAC INFUSING WITH IVF PER ORDER, SITE APPEARS HELTHY AND PATENT. PT DENIES OF ANY PAINS OR DISCOMFORTS. ALL SAFETY PRECAUTIONS ARE IN PLACE WITH CALL LIGHT IN REACH. AIR/CONTACT PECAUTIONS ARE IN PLACE. WILL CONTINUE TO MONITOR
--- NOTE | 2020-05-23 09:15 | NUR ---
WELDER BOILERMAKER INFORMED BY ER TELE MONITORING THAT PT HR DECREASES TO 38. PT SLEEPING IN LOW FOWLERS POSITION. REPIRATIONS EVEN AND UNLABORED. PT AWAKES TO SPEECH. REMAINS ASYMPTOMATIC. MARCI BUTLER NOTIFIED. MORNING DOSE OF LOPRESSOR HELD.
--- NOTE | 2020-05-23 09:38 | NUR ---
TYPESETTING SUPERVISOR NOTIFIED OF HR 33.35 APICAL. MARCI CASTILLO NOTIFIED. EKG ORDERED
--- NOTE | 2020-05-23 09:58 | NUR ---
RESPIRATORY AT BEDSIDE COMPLETING EKG
--- NOTE | 2020-05-23 10:21 | NUR ---
DR IBANEZ AT BEDSIDE
--- NOTE | 2020-05-23 12:17 | NUR ---
PT REQUESTING TO SHOWER AT THIS TIME. RESPIRATIONS ARE EVEN AND UNLABORED ON 2L NC. PT DENIES OF ANY PAINS OR DISCOMFORTS. PT ASSISTED TO SHOWER WITH O2 EXTENSION PROVIDED. INSTRUCTED TO CALL WHEN COMPLETED. PT VERBALIZED UNDERSTANDING. ALL SAFETY PRECAUTIONS ARE IN PLACE. WILL CONTINUE TO MONITOR.
--- NOTE | 2020-05-23 16:09 | NUR ---
PT SITTING UP IN CHAIR. REPSIRATIONS ARE EVEN AND UNLABORED WITH NO DISTRESS NOTED ON 2L NC. IV ANTIBIOTICS INFUSING WITH EASE, SITE APPEARS HEALTHY AND PATENT. TELE MONITORING IN PLACE. PT DENEIS OF ANY NEEDS AT THIS TIME. ALL SAFETY PERCAUTIONS ARE IN PLACE WITH CALL LIGHT IN REACH. WILL CONTINUE TO MONITOR.
--- NOTE | 2020-05-23 16:51 | NUR ---
PT COMPLAINS OF 5/10 PAIN IN EPIGASTRIC REGOIN, PT MEDICATED PER EMAR. REPSIRATIONS REMAINS E [place] AND UNLABORED WITH NO DISTRESS. ALL SAFETY PRECAUTIONS ARE IN PLACE. WILL CONTINUE TO MONITOR.
--- NOTE | 2020-05-23 20:25 | NUR ---
PATIENT SITTING UP IN BED WITH O2 VIA NASAL CANNULA IN PLACE AT 2LPM. AWAKE ALERT AND ORIENTEDX3. ON ISOLATION IN NEG PRESSURE ROOM FOR COVID. CONT TO HAVE COUGH-NOW PRODUCTIVE WITH YELLOW SPUTUM PER PATIENT. MEDICATED WITH ROBITUSSIN ORDERED FOR COUGH. LUNGS ARE DIMINISHED BUT CLEAR. HR-57 AND LOPRESSOR WAS HELD. TELE MONITOR IN PLACE. IV SITE TO RAC INTACT WITH IVF PATENT AND INFUSING AT KVO RATE-SITE REMAINS HEALTHY AT THIS TIME. ENCOURAGED USE OF IS Q1H WHILE AWAKE IN REPS OF 10 WELL USE OF FLUTTER VALVE AT BEDSIDE. STATES THAT SHE HAS BEEN USING THEM INSTRUCTED. ENCOURAGED PRONING IF POSSIBLE. VOIDING QS JERONIMO URINE ON BSC. STATES THAT SHE HAD BM TODAY. SAFETY PRECAUTIONS REINFORCED. CALL LIGHT IN REACH. WILL CONT TO MONITOR.
--- NOTE | 2020-05-23 22:40 | NUR ---
RESTING IN BED WITH O2 VIA NASAL CANNULA IN PLACE ON HER CELL PHONE. NO COMPLAINTS AT THIS TIME. TELE MONITOR IN PLACE. IVF PATENT AND INFUSING VIA RAC SITE AT KVO RATE. CALL LIGHT IN REACH. WILL CONT TO MONITOR.
[2020-05-24] VITALS (20 sets, daily range): BP systolic 96–162; BP diastolic 57–96
--- NOTE | 2020-05-24 00:31 | NUR ---
RECIEVED CALL AGAIN FROM ER THAT TELE WAS READING IN THE 30'S. RESPONDED TO PATIENT ROOM AND PATIENT FOUND ASLEEP AND SNORING. PATIENT WAS AWAKENED. PATIENT ASYMPTOMATIC AT THIS TIME EXCEPT FOR SNORING. TELE MONITOR REMAINS IN PLACE. PATIENT DENIES ANY CHEST PAIN, SOB OR PALPATATIONS. CALL LIGHT IN REACH. WILL CONT TO MONITOR.,
--- NOTE | 2020-05-24 02:06 | NUR ---
RECIEVED CALL AGAIN FROM JASMIN IN ER-TELE MONITOR IN READING IN THE LOW 30'S-31. EKG ORDERED. PATIENT RESTING IN BED AND AGAIN APPEARS SLEEPING. AWAITING RT FOR EKG. WILL CONT TO MONITOR.
--- NOTE | 2020-05-24 04:34 | NUR ---
PATIENT RESTING IN BED AT THIS TIME-PATIENT CONT TO DROP HER HR WHEN SLEEPING. GOES DOWN INTO THE 30'S AND THEN WHEN AWAKEN SHE GOES BACK UP TO THE HIGH 40'S-50'S. PATIENT IS ASYMPTOMATIC. TELE MONITOR REMAINS IN PLACE. O2 VIA NASAL CANNULA IN PLACE AT 2LPM. IVF PATENT AND INFUSING VIA RAC SITE AT KVO RATE. CALL LIGHT IN REACH. WILL CONT TO MONITOR.
--- NOTE | 2020-05-24 04:55 | NUR ---
rec'd from medsurg per bed to room [id number]. no resp diff. clinical research monitor shows sinus rhythm 1st degree avb hr 64. pt has short runs of wenckebach. pulse ox 91%. instructed pt about prone position. pt proned self. pulse ox increased to 98% immediately. #20 rac ns infusing @ 20cchr. fall & air/contact precautions cont.
--- NOTE | 2020-05-24 05:00 | NUR ---
RECIEVED CALL AGAIN FROM ER PATIENT WITH TELE READING OF 29 AT THIS TIME. PATIENT CONT TO BE ASYMPTOMATIC. DR. IBANEZ WAS CALLED AND ORDER RECIEVED TO TRANSFER PATIENT TO ICU-ALLEY RN NSG INSPECTOR AND SORTER NOTIFIED. CALL TO ICU FOR TRANSFER TO ICU BED 4. PATIENT TRANSFERRED VIA BED TO ICU BED 4 WITH PERSONAL BELONGINGS AND O2 VIA NASAL CANNULA IN PLACE AT 2LPM VIA NASAL CANNULA. IVF NS PATENT AND INFUSING VIA RAC SITE AT KVO RATE. CONT TO HAVE NON PRODUCTIVE COUGH THIS MORNING. BEDSIDE REPORT GIVEN TO YAMILE GOYAL.
[2020-05-24 06:12] LABS: HEMATOCRIT 33.9 % (37.0-47.0); HEMOGLOBIN 10.6 g/dl (12.0-16.0); IMMATURE GRANULOCYTES 0.6 % (0.0-5.0); MEAN CELL VOLUME 84.3 fL CALC (80.0-100.0); MEAN CORPUSCULAR HGB 26.4 pG CALC (26.0-32.0); MEAN CORPUSCULAR HGB CONC 31.3 g/dL CAL (32.0-36.0); NEUT# 6.44 thou/uL (2.00-7.15); RED BLOOD COUNT 4.02 mill/uL (4.20-5.60); RED CELL DISTRI WIDTH 15.4 % (11.5-15.5)
[2020-05-24 06:35] LABS: ANION GAP 10 (6-22 (CALC)); BUN 32 mg/dL (8-23); BUN/CREATININE RATIO 45 (12-20 (CALC)); CARBON DIOXIDE 23 mmol/l (22-30); CHLORIDE 107 mmol/l (95-108); CREATININE 0.7 mg/dL (0.5-1.0); GFR > 60 ML/MIN (>=60 (CALC)); GFR FOR AFR.AMER. > 60 ML/MIN (>=60 (CALC)); POTASSIUM 4.5 mmol/l (3.5-5.1); SODIUM 136 mmol/l (137-146)
--- NOTE | 2020-05-24 07:51 | NUR ---
PT IS AWAKE, ALERT, ORIENTED X 3, SEEN PRONE IN THE BED UPON INITIAL EVALUATION. HR IN THE 30s, ASYMPTOMATIC, SECOND DEGREE TYPE 2. LUNGS CLEAR, 2 LPM NC. PT STATES BM THIS MORNING. NO CHEST PAIN OR SHORTNESS OF BREATH REPORTED. WILL MAINTAIN NPO UNTIL PHYSICIAN ARRIVES THIS MORNING PER POSSIBLE PACEMAKER PLACEMENT.
--- NOTE | 2020-05-24 09:37 | NUR ---
PT SEEN BY DR IBANEZ THIS MORNING, DISCUSSED CONSULT WITH DR REED AND ORDERED ECHOCARDIOGRAM. WITH PT AWAKE, HR SEEN TO BE 50-60s.
--- NOTE | 2020-05-24 11:40 | NUR ---
LINEN CHANGE COMPLETED. PT SET UP TO WASH UP. INSTRUCTED PT TO CALL WHEN COMPLETED.
--- NOTE | 2020-05-24 12:16 | NUR ---
PT CALLS APPROPRIATELY FOR ASSIST WITH [facility]. NO REPORT OF SHORTNESS OF BREATH OR CHEST DISCOMFORT. PT IS ALERT AND ORIENTED X 3.
--- NOTE | 2020-05-24 16:21 | NUR ---
PT SEEN OOB IN CHAIR PLAYING ON HER PHONE FOR HOURS, NO DISTRESS, NO COMPLAINTS. PT HR IN 40s.
--- NOTE | 2020-05-24 17:36 | NUR ---
PT HAD 18 BEAT OF SVT WITHOUT SYMPTOMS, DR IBANEZ AWARE. NO ORDERS RECEIVED.
--- NOTE | 2020-05-24 18:11 | NUR ---
PT AT REST IN THE BED, DENIES ANY PALPITATIONS, WILL REPORT IF STARTS.
--- NOTE | 2020-05-24 19:40 | NUR ---
PATIENT IS ALERT AND ORIENTED X4. WATCHES TV. ON RA, O2 SAT 96%, DENIES SOB, NO DYSPNEA OR SOB NOTED. NURSE ASSESSMENT PERFORMED. RAC 20 G IV INTACT, FLUSES PROPERLY, SALINE LOCKED. SR/SB ON TELEMTRY. TEMP 99.. DEGREES F, LIGHT SHEET ON LEGS ONLY. BP 140'S SYSTOLIC. DOES HAVE A MOIST WHEEL ALIGNMENT MECHANIC COUGH, OFFERED COUGH MEDICATION, ACCEPTS. POC DISCUSSED, AND EXPLAINED WHY SHE WAS MOVED TO ICU TO MONITOR CLOSELY, HR DROPS TO 30'S, AND THIS AFTERNOON SHE HAD A FAST HEART RATE, PATIENT DENIES PALPITATIONS, IS AYMPTOMATIC. SELF REPOSITIONS, REQUESTS APPLE JUICE, WILL PROVIDE. CALL LIGHT WITHIN REACH.
--- NOTE | 2020-05-24 21:32 | NUR ---
PATIENT ABLE TO SWALOWW HER MEDS WITHOUT DIFFIVULTY. COUGH MEDICATION PROVIDED. NO ACUTE DISTRESS SHOWN, TALKS ON THE PHONE, FAMILY MEMBER BRIELLE UNDERGARMENTS IN, PROVIDED. NO NEEDS AT THIS TIME. CALL LIGHT WITHIN REACH.
--- NOTE | 2020-05-24 23:40 | NUR ---
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
[2020-05-25] VITALS (15 sets, daily range): BP systolic 109–182; BP diastolic 59–90
--- NOTE | 2020-05-25 01:20 | NUR ---
BP RE-TAKEN DUE TO TERRELL 170'S SYSTOLIC. PATIENT ABLE TO GET UP TO BSC, LAYS BACK IN BED, NO COMPLAINTS OR NEEDS AT THIS TIME.
--- NOTE | 2020-05-25 04:06 | NUR ---
PATIENT LAYS WITH EYES CLOSED, BERENICE TAM DISTRESS SHOWN. HR 40'S-50'S. WHEN AWAKE OR WITH EXERTION, HR RAISES TO 90'S. CALL LIGHT WITHIN REACH.
--- NOTE | 2020-05-25 04:47 | NUR ---
RIP TAILER ABLE TO DRAW AM LABS.
[2020-05-25 05:04] LABS: HEMATOCRIT 36.5 % (37.0-47.0); HEMOGLOBIN 11.6 g/dl (12.0-16.0); MEAN CORPUSCULAR HGB 26.4 pG CALC (26.0-32.0); MEAN CORPUSCULAR HGB CONC 31.8 g/dL CAL (32.0-36.0); NEUT# 5.93 thou/uL (2.00-7.15); RED BLOOD COUNT 4.4 mill/uL (4.20-5.60); RED CELL DISTRI WIDTH 15.1 % (11.5-15.5)
[2020-05-25 05:27] LABS: ALBUMIN 3.1 g/dL (3.2-5.0); ALKALINE PHOSPHATASE 88 u/l (38-126); BILIRUBIN, TOTAL 0.5 mg/dL (0.0-1.4); BUN 28 mg/dL (8-23); BUN/CREATININE RATIO 28 (12-20 (CALC)); C-REACTIVE PROTEIN 1.5 mg/dL (0-0.9); CHLORIDE 101 mmol/l (95-108); GFR 55 ML/MIN (>=60 (CALC)); GFR FOR AFR.AMER. > 60 ML/MIN (>=60 (CALC)); POTASSIUM 4.4 mmol/l (3.5-5.1); SGOT/AST 28 u/l (9-36); SODIUM 136 mmol/l (137-146); TOTAL PROTEIN 6.3 g/dL (6.3-8.2)
[2020-05-25 05:28] LABS: ANION GAP 10 (6-22 (CALC)); CARBON DIOXIDE 29 mmol/l (22-30)
--- NOTE | 2020-05-25 07:52 | NUR ---
PT IS AWAKE, ALERT, ORIENTED X 3. LUNGS CLEAR, RA. NO COMPLAINTS OF SHORTNESS OF BREATH OR CHEST PAIN OR PALPITATIONS. HR SHOWS SR IN THE 60s.
--- NOTE | 2020-05-25 11:36 | NUR ---
DR REED'S OFFICE CALLED FOR CARDIOLOGY CONSULT. INFORMATION GIVEN, PER HEEL COVERER MACHINE OPERATOR DR REED TO BE NOTIFIED.
--- NOTE | 2020-05-25 11:40 | NUR ---
PT SEEN BY DR IBANEZ THIS MORNING, DISCUSSED POSSIBILITY OF PACEMAKER INSERTION, WILL CONSULT WITH DR REED.
--- NOTE | 2020-05-25 13:11 | NUR ---
PT REMAINS AT REST IN THE BED, NO ECTOPY NOTED ON MONITOR. PT SEEN BY DR IBANEZ, AWAITS ECHOCARDIOGRAM.
--- NOTE | 2020-05-25 17:02 | NUR ---
PT HAD ECHOCARDIOGRAM DONE TODAY. SHE IS DOING WELL, RHYTHM REMAINS SINUS, NO ECTOPY.
--- NOTE | 2020-05-25 19:35 | NUR ---
RESTING IN BED. RESP NON-LABORED. RA O2 SAT 95% BREATH SOUNDS CLEAR. NO PERIPHERAL EDEMA, PULSES INTACT. IV IN RAC, SITE BENIGN, NS INFUSING AT 20 ML/HR. HRIS ANALYST SHOWS SB-SR. HR 50'S-60'S. PATIENT USES BSC INDEPENDENTLY, VOIDS CLEAR YELLOW AND HAD SMALL SOFT BROWN STOOL. DISCUSSED PLAN OF CARE. DENIES NEEDS AT THIS TIME. CALL JOHNSON IN REACH.
--- NOTE | 2020-05-25 21:56 | NUR ---
RESTING IN BED WATCHING TV. NO COMPLAINTS VOICED. VSS. SB ON MONITOR.
[2020-05-26] VITALS (17 sets, daily range): BP systolic 102–187; BP diastolic 54–95
--- NOTE | 2020-05-26 00:13 | NUR ---
FREQ COUGH NOTED. MEDICATED WITH ROBITUSSIN ORDERED. VSS. RESP NON-LABORED. RA O2 SAT 89% AT THIS TIME. O2 APPLIED AT 2 L NC. O2 SAT PICKED UP TO 93%
--- NOTE | 2020-05-26 02:00 | NUR ---
COUGHING HAS SUBSIDED SINCE ROBITUSSIN GIVEN EARLIER. O2 SAT 95-95% SB ON MONITOR HR 40'S.
--- NOTE | 2020-05-26 04:00 | NUR ---
NO CHANGES TO REPORT. VSS. SB ON MONITOR, HR 40'S. O2 SAT 96-98%
[2020-05-26 05:52] LABS: ALBUMIN 3.3 g/dL (3.2-5.0); ALKALINE PHOSPHATASE 77 u/l (38-126); ANION GAP 11 (6-22 (CALC)); BILIRUBIN, TOTAL 0.6 mg/dL (0.0-1.4); BUN 24 mg/dL (8-23); BUN/CREATININE RATIO 27 (12-20 (CALC)); CARBON DIOXIDE 30 mmol/l (22-30); CHLORIDE 100 mmol/l (95-108); CREATININE 0.9 mg/dL (0.5-1.0); GFR > 60 ML/MIN (>=60 (CALC)); GFR FOR AFR.AMER. > 60 ML/MIN (>=60 (CALC)); POTASSIUM 4.8 mmol/l (3.5-5.1); SGOT/AST 27 u/l (9-36); SODIUM 137 mmol/l (137-146); TOTAL PROTEIN 6.7 g/dL (6.3-8.2)
--- NOTE | 2020-05-26 05:56 | NUR ---
SLEPT WELL. VSS. HAS MAINTAINED O2 SATS GREATER THAN 90% THROUGHOUT THE NIGHT. USING O2 AT 2 L NC. SB ON MONITOR, HR 40'S. NS INFUSING AT KVO.
--- NOTE | 2020-05-26 07:59 | NUR ---
PT AT REST IN THE BED WITH EYES CLOSED, NO DISTRESS. MONITOR SHOWS SR WITH RATE OF 60-80.
--- NOTE | 2020-05-26 11:51 | NUR ---
PT AWARE OF PENDING TRANSFER FOR PACEMAKER INSERTION. NO ORDERS SEEN YET. BP WAS LOW, PROVIDED BOLUS 500 NS, BACK UP. NO DISTRESS.
--- NOTE | 2020-05-26 15:28 | NUR ---
PT REMAINS AT REST IN THE CHAIR, AWAITING TRANSFER TO [facility]. DR TUCKER CALLED INQUIRING WHERE IS PATIENT, NOW CASE MGMT AWARE AND WORKING ON TRANSFER.
--- NOTE | 2020-05-26 19:30 | NUR ---
PT SITTING UP IN CHAIR, DENIES SOB OR PAIN. SR ON MONITOR.
--- NOTE | 2020-05-26 21:35 | NUR ---
PT SITTING UP IN BED WITH LEGS CROSSED, WATCHING TV. REQUEST WHOLE MILK, HOB TO BE LOWERED DENIES OTHER NEEDS.
--- NOTE | 2020-05-26 23:40 | NUR ---
PT RESTING AT THIS TIME. VSS, SR ON MONITOR.
[2020-05-27] VITALS (8 sets, daily range): BP systolic 95–192; BP diastolic 56–92
[2020-05-27 05:39] LABS: HEMATOCRIT 38.7 % (37.0-47.0); HEMOGLOBIN 12.4 g/dl (12.0-16.0); IMMATURE GRANULOCYTES 1.8 % (0.0-5.0); MEAN CELL VOLUME 81.8 fL CALC (80.0-100.0); MEAN CORPUSCULAR HGB 26.2 pG CALC (26.0-32.0); NEUT# 6.82 thou/uL (2.00-7.15); RED BLOOD COUNT 4.73 mill/uL (4.20-5.60); RED CELL DISTRI WIDTH 14.7 % (11.5-15.5)
[2020-05-27 06:05] LABS: ALBUMIN 3.2 g/dL (3.2-5.0); ALKALINE PHOSPHATASE 85 u/l (38-126); ANION GAP 12 (6-22 (CALC)); BILIRUBIN, TOTAL 0.5 mg/dL (0.0-1.4); BUN 26 mg/dL (8-23); BUN/CREATININE RATIO 38 (12-20 (CALC)); C-REACTIVE PROTEIN 0.9 mg/dL (0-0.9); CARBON DIOXIDE 27 mmol/l (22-30); CHLORIDE 99 mmol/l (95-108); CREATININE 0.7 mg/dL (0.5-1.0); GFR > 60 ML/MIN (>=60 (CALC)); GFR FOR AFR.AMER. > 60 ML/MIN (>=60 (CALC)); POTASSIUM 5.1 mmol/l (3.5-5.1); SGOT/AST 23 u/l (9-36); SODIUM 133 mmol/l (137-146); TOTAL PROTEIN 6.5 g/dL (6.3-8.2)
--- NOTE | 2020-05-27 10:14 | NUR ---
PATIENT WILL FOLLOW WITH DEREK ON OUT PAITENT BASIS, o2 ROAD TEST NEEDED BEFORE DC
[2020-05-27] MEDS ORDERED: DOXYCYCL HYC100 MG PO (10:21)
[2020-05-27] MEDS ORDERED: DEXAMETHASON6 MG PO (10:21)
--- NOTE | 2020-05-27 10:23 | NUR ---
ISOLATION IS BEING DISCONTINUED
--- NOTE | 2020-05-27 12:47 | NUR ---
PATIENT GIVEN DC ORDERS, SIDNED PAPERWORK, PRESCRPTIONS SENT TO PHARMACY, PATIENT WILL CALL GRANDDAUGHTER FOR RIDE. TELE DC ALSO
--- NOTE | 2020-05-31 11:41 | NUR ---
Post discharge pneumonia call completed today, 05/31/20. Pt. states she is doing well. Granddaughter is with her and assisting her as needed. Pt. obtained medication prescribed at discharge and has been taking as prescribed. Pt. states she has developed white bumps in mouth and on tongue. Very painful. Follow up appt with PCP has not been made yet. Instructed patient to call PCP and make follow up appt and to inform them of the issue with her mount.. Pt. states she will do so todeay. No other questions or concerns. Pt. complimented staff on her care while admitted.
== END 2020-05-27 12:40 | disposition home or self-care (01) | DRG 177 ==
LOC: ED 13:47 → ED-I 14:19 → ED 14:19 → ED-I 15:40 → ED 15:54 → MS2 15:55 → ICU 05-22 18:25 → MS2 05-22 18:25 → ICU 05-24 04:40
PROVIDERS: Physician Assistant; ADMIT Internal Medicine; ATTEND Internal Medicine
PROC: XW033E5 Introduction of Remdesivir Anti-infective into Peripheral Vein, Percutaneous Approach, New Technology Group 5 (ICD-10-PCS; principal; 2020-05-22)
DX: U07.1 COVID-19 (principal); J12.82 Pneumonia due to coronavirus disease 2019; J96.01 Acute respiratory failure with hypoxia; I44.2 Atrioventricular block, complete; I49.5 Sick sinus syndrome; R19.7 Diarrhea, unspecified; J45.909 Unspecified asthma, uncomplicated; I10 Essential (primary) hypertension; I25.10 Atherosclerotic heart disease of native coronary artery without angina pectoris; F41.0 Panic disorder [episodic paroxysmal anxiety]; I25.2 Old myocardial infarction; Z95.5 Presence of coronary angioplasty implant and graft
CPT/HCPCS: J1650; Q9967

== ENCOUNTER 2020-08-02 13:03 | Observation (INO) | payer MEDICARE, MEDICAID ==
[~2020-08-02] VITALS: Ht 152.4 cm; Wt 76.0 kg
[~2020-08-02 13:03] MED LIST changes: +DEXAMETHASON6 MG PO; +DOXYCYCL HYC100 MG PO
--- NOTE | 2020-08-02 13:03 | NUR ---
PT TO ER ROOM 6 VIA EMS FOR BEDSIDE TRIAGE.
--- NOTE | 2020-08-02 13:30 | NUR ---
COVID SWAB COLLECTED, ISOLATION PRECAUTIONS INITIATED.
--- NOTE | 2020-08-02 14:30 | NUR ---
PT AMBULATED TO BATHROOM WITH STEADY GAIT. RESPS EVEN AND UNLABORED ON ROOM AIR.
[2020-08-02 14:35] LABS: HEMOGLOBIN 12.1 g/dl (12.0-16.0); IMMATURE GRANULOCYTES 0.5 % (0.0-5.0); MEAN CORPUSCULAR HGB 28.1 pG CALC (26.0-32.0); MEAN CORPUSCULAR HGB CONC 31.8 g/dL CAL (32.0-36.0); NEUT# 9.99 thou/uL (2.00-7.15); RED BLOOD COUNT 4.3 mill/uL (4.20-5.60)
[2020-08-02 14:37] LABS: MEAN CELL VOLUME 88.4 fL CALC (80.0-100.0)
[2020-08-02 14:53] LABS: ALKALINE PHOSPHATASE 109 u/l (38-126); ANION GAP 11 (6-22 (CALC)); BILIRUBIN, TOTAL 0.3 mg/dL (0.0-1.4); BUN 34 mg/dL (8-23); BUN/CREATININE RATIO 36 (12-20 (CALC)); CARBON DIOXIDE 28 mmol/l (22-30); CHLORIDE 99 mmol/l (95-108); GFR 55 ML/MIN (>=60 (CALC)); GFR FOR AFR.AMER. > 60 ML/MIN (>=60 (CALC)); POTASSIUM 4.1 mmol/l (3.5-5.1); SGOT/AST 31 u/l (9-36); SODIUM 134 mmol/l (137-146)
[2020-08-02 14:56] LABS: TOTAL PROTEIN 7.9 g/dL (6.3-8.2)
--- NOTE | 2020-08-02 15:58 | NUR ---
MD AT BEDSIDE TO DISCUSS RESULTS AND POC.
--- NOTE | 2020-08-02 17:50 | NUR ---
RESTING QUIETLY, RESPS EVEN AND UNLABORED ON ROOM AIR, DENIES NEEDS AT THIS TIME.
[2020-08-02 18:20] VITALS: BP 102/67
--- NOTE | 2020-08-02 18:20 | NUR ---
REPORT CALLED TO ELEN DUBOIS. Admission Note Report Given to: ELEN DUBOIS Transported by: X Wheelchair Stretcher Transported with: X Nurse Transporter X Patent IV O2 X Finisher [employer] Location: ICU X MS2 PT TRANSPORTED TO FLOOR VIA WC IN STABLE CONDITION.
--- NOTE | 2020-08-02 18:28 | NUR ---
PT ARRIVED TO MED SURG FLOOR VIA WC IN STABLE CONDITION ACCOMPANIED BY SHERLY PALENCIA;PT AMBULATED TO BED WITH STEADY GAIT;VS WERE TAKEN;ARM BANDS PLACED ON PT;PT ORIENTED TO ROOM, TV,BED AND CALL LIGHT;PT ENCOURAGED TO CALL WITH ANY NEEDS OR CONCERNS;SAFETY PRECAUTIONS IN PLACE;CALL LIGHT WITHIN REACH;BED IN LOWEST POSITION;COURT CLERK WILL COMPLETE THE ADMISSION.
--- NOTE | 2020-08-02 20:00 | NUR ---
PHYSICAL ASSESMENT COMPLETE. PT CURRENTLY DENIES PAIN OR DISCOMFORT. SCHEDULED MEDICATIONS AND PRN MEDICATION ADMINISTERED, SEE E-MAR. PT DENIES ANY NEEDS AT THIS TIME. PLAN OF CARE REVIEWED, PT DENIES QUESTIONS, VERBALIZES UNDERSTANDING. ITEMS WITHIN REACH, BED LOCKED IN LOW POSITION W/ BEDRAILS UP X2. CALL JOHNSON WITHIN REACH, AGREES TO CALL PRN.
--- NOTE | 2020-08-03 | NUR ---
PT LAYING IN BED WITH EYES CLOSED, APPEARS TO BE SLEEPING, APPEARS COMFORTABLE AND IN NO DISTRESS. RESPIRATIONS REGULAR AND UNLABORED. ITEMS REMAIN WITHIN REACH, CALL JOHNSON REMAINS WITHIN REACH. BED REMAINS LOCKED AND IN LOW POSITION WITH BEDRAILS UP X2. WILL CONTINUE TO MONITOR.
[2020-08-03 00:21] VITALS: BP 110/61
--- NOTE | 2020-08-03 04:06 | NUR ---
PT RESTING IN BED, NO SIGNS OF DISTRESS NOTED, RESP EVEN AND UNLABORED. PT VOICES NO NEEDS OR COMPLAINTS AT THIS TIME. CALL LIGHT IN REACH, CONTINUE TO MONITOR.
[2020-08-03 04:33] VITALS: BP 101/53
[2020-08-03 06:54] LABS: HEMATOCRIT 38.1 % (37.0-47.0); MEAN CORPUSCULAR HGB CONC 31.5 g/dL CAL (32.0-36.0); RED BLOOD COUNT 4.28 mill/uL (4.20-5.60); RED CELL DISTRI WIDTH 15.2 % (11.5-15.5)
--- NOTE | 2020-08-03 07:00 | NUR ---
PT REPORT RECEIVED FROM NIGHT NURSEEDINSON.
[2020-08-03 07:29] LABS: ANION GAP 14 (6-22 (CALC)); BUN 35 mg/dL (8-23); BUN/CREATININE RATIO 42 (12-20 (CALC)); CHLORIDE 101 mmol/l (95-108); CREATININE 0.8 mg/dL (0.5-1.0); GFR > 60 ML/MIN (>=60 (CALC)); GFR FOR AFR.AMER. > 60 ML/MIN (>=60 (CALC)); POTASSIUM 4.4 mmol/l (3.5-5.1); SODIUM 133 mmol/l (137-146)
[2020-08-03 07:30] VITALS: BP 105/67
[2020-08-03 07:34] LABS: CARBON DIOXIDE 22 mmol/l (22-30)
--- NOTE | 2020-08-03 08:00 | NUR ---
PT WAS FOUND RESTING IN BED;PT IS A&OX3;VS AND ASSESSMENT WERE COMPLETED;HEART SOUNDS ARE REGULAR IN RATE AND RHYTHM;TELE IS IN PLACE;LUNG SOUNDS ARE DIMINISHED IN ALL LOBES;RESPIRATIONS ARE EVEN AND UNLABORED ON RA;#20G IV IN LAC IS SL, PATENT AND FREE OF COMPLICATIONS AT THIS TIME;PT HAS GENERALIZED TRACE EDEMA PRESENT;SAFETY PRECAUTIONS IN PLACE;CALL LIGHT WITHIN REACH;BED IN LOWEST POSITION;WILL CONTINUE TO MONITOR.
[2020-08-03 10:28] VITALS: BP 95/65
[2020-08-03] MEDS ORDERED: MEDDOSEPAK PO (11:54)
--- NOTE | 2020-08-03 12:00 | NUR ---
PT WAS FOUND RESTING IN BEDSIDE CHAIR;PT HAS NO REPORTS OF PAIN AT THIS TIME; TELE IS IN PLACE;SAFETY PRECAUTIONS IN PLACE;CALL LIGHT WITHIN REACH;WILL CONTINUE TO MONITOR.
--- NOTE | 2020-08-03 14:17 | NUR ---
Discharge instructions given. Patient verbalizes understanding of same. Discharged in stable condition via Wheelchair to Home with family. All belongings sent with pt. DISCHARGE PAPERWORK WAS GIVEN TO PT;DISCHARGE AND MEDICATION INSTRUCTIONS WERE GIVEN TO PT;PT EXPRESSED UNDERSTANDING AND HAD NO FURTHER QUESTIONS;SIGNATURE WAS OBTAINED;TELE WAS REMOVED AND CATHETER WAS REMOVED WITH NO COMPLICATIONS AND CATHETER INTACT; PT WAS TRANSPORTED TO [facility] VIA IN STABLE CONDITION ACCOMPANIED BY LAUNDRETTE OWNER;ALL PT BELONGINGS WERE SENT WITH PT;PT AND ,ALSO DISCHARGED TODAY, WILL BE TRANSPORTED HOME AFTER DISCHARGE WITH [facility];
== END 2020-08-03 14:17 | disposition home or self-care (01) ==
LOC: ED 13:03 → ED-I 15:50 → ED 16:12 → MS2 16:13
PROVIDERS: Family Medicine; Nurse Practitioner; ADMIT Internal Medicine; ATTEND Internal Medicine
DX: J44.1 Chronic obstructive pulmonary disease with (acute) exacerbation (principal); R07.9 Chest pain, unspecified; I10 Essential (primary) hypertension; I25.10 Atherosclerotic heart disease of native coronary artery without angina pectoris; I49.5 Sick sinus syndrome; F41.0 Panic disorder [episodic paroxysmal anxiety]; D72.829 Elevated white blood cell count, unspecified; K21.9 Gastro-esophageal reflux disease without esophagitis; I25.2 Old myocardial infarction; Z95.5 Presence of coronary angioplasty implant and graft; Z20.822 Contact with and (suspected) exposure to COVID-19
CPT/HCPCS: G0378; J1650

== ENCOUNTER 2022-01-21 08:11 | Emergency (ER) | payer MEDICARE, MEDICAID ==
[~2022-01-21] VITALS: Ht 152.4 cm; Wt 82.0 kg
[2022-01-21] MEDS ORDERED: DOXYCYCLINE100 MG PO (08:40)
[2022-01-21] MEDS ORDERED: PREDNISONE50 MG PO (08:40)
[2022-01-21] MEDS ORDERED: PROVENTIL HFA IN (08:40)
[2022-01-21 08:47] VITALS: BP 149/96
== END 2022-01-21 08:55 | disposition home or self-care (01) ==
LOC: ED 08:11
DX: J20.9 Acute bronchitis, unspecified (principal); I10 Essential (primary) hypertension; J45.909 Unspecified asthma, uncomplicated; I25.2 Old myocardial infarction

== ENCOUNTER 2022-03-13 11:48 | Emergency (ER) | payer MEDICARE, MEDICAID ==
[~2022-03-13] VITALS: Ht 152.4 cm; Wt 68.2 kg
[~2022-03-13 11:48] MED LIST changes: +DOXYCYCLINE100 MG PO; +PROVENTIL HFA IN
[2022-03-13] MEDS ORDERED: MEDDOSEPAK PO (16:14)
[2022-03-13] MEDS ORDERED: METHOCARBAMOL500 MG PO (16:14)
[2022-03-13 16:20] VITALS: BP 156/102
== END 2022-03-13 16:52 | disposition home or self-care (01) ==
LOC: ED 11:48
DX: S16.1XXA Strain of muscle, fascia and tendon at neck level, initial encounter (principal); I10 Essential (primary) hypertension; J45.909 Unspecified asthma, uncomplicated; I25.2 Old myocardial infarction; X58.XXXA Exposure to other specified factors, initial encounter; Z95.5 Presence of coronary angioplasty implant and graft

== ENCOUNTER 2022-03-16 10:30 | Emergency (ER) | payer MEDICARE, MEDICAID ==
[2022-03-16] VITALS (9 sets, daily range): BP systolic 104–158; BP diastolic 57–84
[~2022-03-16] VITALS: Ht 152.4 cm; Wt 75.0 kg
[~2022-03-16 10:30] MED LIST changes: +METHOCARBAMOL500 MG PO
[2022-03-16 10:53] LABS: BASO% 0.2 % (0-3); EOS% 0.1 % (0-8); HEMATOCRIT 40.1 % (37.0-47.0); HEMOGLOBIN 13.2 g/dl (12.0-16.0); IMMATURE GRANULOCYTES 0.6 % (0.0-5.0); LYMPH% 18.1 % (15-41); MEAN CELL VOLUME 87.4 fL CALC (80.0-100.0); MEAN CORPUSCULAR HGB 28.8 pG CALC (26.0-32.0); MEAN CORPUSCULAR HGB CONC 32.9 g/dL CAL (32.0-36.0); MONO% 7.9 % (2-13); NEUT# 9.2 thou/uL (2.00-7.15); NEUT% 73.1 % (42-76); RED BLOOD COUNT 4.59 mill/uL (4.20-5.60); RED CELL DISTRI WIDTH 14.6 % (11.5-15.5)
[2022-03-16] MEDS ORDERED: NITROGLYCERIN0.4 MG SL (10:58)
[2022-03-16] MEDS ORDERED: LIPITOR20 M1 PO (10:58)
[2022-03-16] MEDS ORDERED: OXYBUTYNIN CHLOR5 M2 PO (11:00)
[2022-03-16] MEDS ORDERED: METOPROL TAR25 MG PO (11:01)
[2022-03-16] MEDS ORDERED: CELECOXIB100 MG PO (11:02)
[2022-03-16] MEDS ORDERED: OMEPRAZOLE DR40 MG PO (11:02)
[2022-03-16] MEDS ORDERED: CLOPIDOGREL75 MG PO (11:03)
[2022-03-16 11:26] LABS: ALBUMIN 4.6 g/dL (3.2-5.0); ALKALINE PHOSPHATASE 89 u/l (38-126); ANION GAP 13 (6-22 (CALC)); BILIRUBIN, TOTAL 0.4 mg/dL (0.0-1.4); BUN 35 mg/dL (8-23); BUN/CREATININE RATIO 35 (12-20 (CALC)); CARBON DIOXIDE 22 mmol/l (22-30); CHLORIDE 106 mmol/l (95-108); GFR FOR AFR.AMER. > 60 ML/MIN (>=60 (CALC)); GFR OTHER RACES 55 ML/MIN (>=60 (CALC)); SGOT/AST 40 u/l (9-36); SODIUM 137 mmol/l (137-146); TOTAL PROTEIN 8.3 g/dL (6.3-8.2)
[2022-03-16 11:28] LABS: POTASSIUM 4.3 mmol/l (3.5-5.1)
== END 2022-03-16 12:28 | disposition left against medical advice (07) ==
LOC: ED 10:30
PROVIDERS: Family Medicine
DX: R07.9 Chest pain, unspecified (principal); I10 Essential (primary) hypertension; I25.2 Old myocardial infarction; Z95.5 Presence of coronary angioplasty implant and graft; Z53.29 Procedure and treatment not carried out because of patient's decision for other reasons

== ENCOUNTER 2022-03-17 08:22 | Observation (INO) | payer MEDICARE, MEDICAID ==
[2022-03-17] VITALS (16 sets, daily range): BP systolic 129–171; BP diastolic 69–112
[~2022-03-17] VITALS: Ht 152.4 cm; Wt 64.0 kg
[~2022-03-17 08:22] MED LIST changes: +CELECOXIB100 MG PO; +LIPITOR20 M1 PO; +NITROGLYCERIN0.4 MG SL; +OXYBUTYNIN CHLOR5 M2 PO
[2022-03-17 08:57] LABS: BASO% 0.2 % (0-3); EOS% 0.2 % (0-8); HEMATOCRIT 40.8 % (37.0-47.0); HEMOGLOBIN 13.6 g/dl (12.0-16.0); IMMATURE GRANULOCYTES 0.7 % (0.0-5.0); LYMPH% 20.7 % (15-41); MEAN CELL VOLUME 86.8 fL CALC (80.0-100.0); MEAN CORPUSCULAR HGB 28.9 pG CALC (26.0-32.0); MEAN CORPUSCULAR HGB CONC 33.3 g/dL CAL (32.0-36.0); MONO% 10.3 % (2-13); NEUT# 7.62 thou/uL (2.00-7.15); NEUT% 67.9 % (42-76); RED BLOOD COUNT 4.7 mill/uL (4.20-5.60); RED CELL DISTRI WIDTH 14.4 % (11.5-15.5)
[2022-03-17 09:20] LABS: ALBUMIN 4.5 g/dL (3.2-5.0); ALKALINE PHOSPHATASE 89 u/l (38-126); ANION GAP 11 (6-22 (CALC)); BILIRUBIN, TOTAL 0.3 mg/dL (0.0-1.4); BUN 31 mg/dL (8-23); BUN/CREATININE RATIO 32 (12-20 (CALC)); CARBON DIOXIDE 26 mmol/l (22-30); CHLORIDE 104 mmol/l (95-108); CREATININE 0.9 mg/dL (0.5-1.0); GFR FOR AFR.AMER. > 60 ML/MIN (>=60 (CALC)); GFR OTHER RACES > 60 ML/MIN (>=60 (CALC)); POTASSIUM 4.4 mmol/l (3.5-5.1); SGOT/AST 32 u/l (9-36); SODIUM 136 mmol/l (137-146); TOTAL PROTEIN 8.1 g/dL (6.3-8.2)
[2022-03-17 19:10] LABS: URINE BILIRUBIN - DIPSTICK NEGATIVE (NEGATIVE); URINE BLOOD DIPSTICK SMALL (NEGATIVE); URINE COLOR YELLOW; URINE GLUCOSE - DIPSTICK NEGATIVE (NEGATIVE); URINE KETONE NEGATIVE (NEGATIVE); URINE LEUK ESTERASE NEGATIVE (NEGATIVE); URINE PH 5.5 (4.5-8.0); URINE PROTEIN - DIPSTICK NEGATIVE (NEG-TRACE); URINE SPECIFIC GRAVITY 1.015; URINE UROBILINOGEN - DIPSTICK 0.2 E.U./dL (0.2)
[2022-03-17 19:12] LABS: URINE NITRITE - DIPSTICK NEGATIVE (Negative)
[2022-03-17 19:22] LABS: URINE RBC 0-2 RBC/hpf (0-5)
[2022-03-18 03:52] VITALS: BP 129/77
[2022-03-18 04:00] VITALS: BP 129/77
[2022-03-18 05:29] LABS: MAGNESIUM 2.3 mg/dL (1.6-2.3)
[2022-03-18 06:45] VITALS: BP 143/85
[2022-03-18 10:20] VITALS: BP 143/85
== END 2022-03-18 14:12 | disposition home or self-care (01) ==
LOC: ED 08:22 → ED-I 10:15 → ED 12:12 → MS2 12:13
PROVIDERS: Family Medicine; ADMIT Internal Medicine; ATTEND Internal Medicine
DX: R07.9 Chest pain, unspecified (principal); I10 Essential (primary) hypertension; I25.10 Atherosclerotic heart disease of native coronary artery without angina pectoris; I49.5 Sick sinus syndrome; E78.5 Hyperlipidemia, unspecified; K21.9 Gastro-esophageal reflux disease without esophagitis; J45.909 Unspecified asthma, uncomplicated; I25.2 Old myocardial infarction; Z95.5 Presence of coronary angioplasty implant and graft
CPT/HCPCS: J1650

== ENCOUNTER 2022-05-15 20:40 | Emergency (ER) | payer MEDICARE, MEDICAID ==
[2022-05-15] VITALS (15 sets, daily range): BP systolic 115–145; BP diastolic 69–90
[~2022-05-15] VITALS: Ht 152.4 cm; Wt 81.2 kg
[2022-05-15 21:50] LABS: BASO% 0.9 % (0-3); EOS% 4.2 % (0-8); HEMOGLOBIN 13.1 g/dl (12.0-16.0); IMMATURE GRANULOCYTES 0.1 % (0.0-5.0); LYMPH% 22.4 % (15-41); MEAN CELL VOLUME 85.8 fL CALC (80.0-100.0); MEAN CORPUSCULAR HGB 27.4 pG CALC (26.0-32.0); MONO% 14.3 % (2-13); NEUT# 4.71 thou/uL (2.00-7.15); NEUT% 58.1 % (42-76); RED BLOOD COUNT 4.78 mill/uL (4.20-5.60)
[2022-05-15 22:02] LABS: ALBUMIN 4.4 g/dL (3.2-5.0); ALKALINE PHOSPHATASE 104 u/l (38-126); ANION GAP 13 (6-22 (CALC)); BILIRUBIN, TOTAL 0.2 mg/dL (0.02-1.3); BUN 30 mg/dL (8-23); BUN/CREATININE RATIO 31 (12-20 (CALC)); CARBON DIOXIDE 24 mmol/l (22-30); CHLORIDE 106 mmol/l (95-108); ETHYL ALCOHOL 0 mg/dl (0-30); GFR FOR AFR.AMER. > 60 ML/MIN (>=60 (CALC)); GFR OTHER RACES 55 ML/MIN (>=60 (CALC)); POTASSIUM 4.2 mmol/l (3.5-5.1); SGOT/AST 35 u/l (9-36); SODIUM 138 mmol/l (137-146); TOTAL PROTEIN 7.9 g/dL (6.3-8.2)
[2022-05-15 22:36] LABS: URINE BILIRUBIN - DIPSTICK NEGATIVE (NEGATIVE); URINE BLOOD DIPSTICK MODERATE (NEGATIVE); URINE COLOR YELLOW; URINE GLUCOSE - DIPSTICK NEGATIVE (NEGATIVE); URINE KETONE NEGATIVE (NEGATIVE); URINE LEUK ESTERASE NEGATIVE (NEGATIVE); URINE PH 5.5 (4.5-8.0); URINE PROTEIN - DIPSTICK NEGATIVE (NEG-TRACE); URINE SPECIFIC GRAVITY >=1.030; URINE UROBILINOGEN - DIPSTICK 0.2 E.U./dL (0.2)
[2022-05-15 22:38] LABS: URINE NITRITE - DIPSTICK NEGATIVE (Negative)
[2022-05-15 22:52] LABS: URINE SQUAMOUS EPITHELIAL CELL FEW EPI/hpf (0-FEW)
== END 2022-05-15 23:53 | disposition home or self-care (01) ==
LOC: ED 20:40
PROVIDERS: Family Medicine
DX: R55 Syncope and collapse (principal); I10 Essential (primary) hypertension; I25.2 Old myocardial infarction; J45.909 Unspecified asthma, uncomplicated; Z95.5 Presence of coronary angioplasty implant and graft

== ENCOUNTER 2022-09-02 17:27 | Emergency (ER) | payer MEDICARE, MEDICAID ==
[~2022-09-02] VITALS: Ht 152.4 cm; Wt 62.6 kg
[2022-09-02 17:38] VITALS: BP 105/76
[2022-09-02 18:00] VITALS: BP 115/79
[2022-09-02 18:02] LABS: BASO% 0.7 % (0-3); EOS% 3.4 % (0-8); HEMATOCRIT 42.6 % (37.0-47.0); HEMOGLOBIN 13.6 g/dl (12.0-16.0); IMMATURE GRANULOCYTES 0.1 % (0.0-5.0); LYMPH% 28.6 % (15-41); MEAN CELL VOLUME 84.4 fL CALC (80.0-100.0); MEAN CORPUSCULAR HGB 26.9 pG CALC (26.0-32.0); MEAN CORPUSCULAR HGB CONC 31.9 g/dL CAL (32.0-36.0); MONO% 12.7 % (2-13); NEUT# 3.85 thou/uL (2.00-7.15); NEUT% 54.5 % (42-76); RED BLOOD COUNT 5.05 mill/uL (4.20-5.60); RED CELL DISTRI WIDTH 14.3 % (11.5-15.5)
[2022-09-02 18:14] LABS: ALBUMIN 4.3 g/dL (3.2-5.0); BILIRUBIN, TOTAL 0.3 mg/dL (0.02-1.3); CREATININE 1.2 mg/dL (0.5-1.0); POTASSIUM 4.7 mmol/l (3.5-5.1); TOTAL PROTEIN 7.8 g/dL (6.3-8.2)
[2022-09-02 18:15] VITALS: BP 115/77
[2022-09-02 18:30] VITALS: BP 119/75
[2022-09-02 19:17] VITALS: BP 126/81
[2022-09-02 19:31] VITALS: BP 140/92
== END 2022-09-02 19:33 | disposition left against medical advice (07) ==
LOC: ED 17:27
PROVIDERS: Family Medicine
DX: R07.9 Chest pain, unspecified (principal); I10 Essential (primary) hypertension; I25.2 Old myocardial infarction; Z95.5 Presence of coronary angioplasty implant and graft; Z53.29 Procedure and treatment not carried out because of patient's decision for other reasons

== ENCOUNTER 2022-11-27 19:13 | Emergency (ER) | payer MEDICARE, MEDICAID ==
[~2022-11-27] VITALS: Ht 152.4 cm; Wt 65.0 kg
[2022-11-27 19:30] VITALS: BP 124/73
[2022-11-27 19:46] VITALS: BP 124/77
[2022-11-27 20:01] VITALS: BP 144/79
[2022-11-27 20:15] VITALS: BP 156/87
[2022-11-27 21:20] VITALS: BP 156/87
== END 2022-11-27 21:41 | disposition home or self-care (01) ==
LOC: ED 19:13
DX: S80.02XA Contusion of left knee, initial encounter (principal); S90.02XA Contusion of left ankle, initial encounter; S60.212A Contusion of left wrist, initial encounter; I25.10 Atherosclerotic heart disease of native coronary artery without angina pectoris; J45.909 Unspecified asthma, uncomplicated; I25.2 Old myocardial infarction; W01.0XXA Fall on same level from slipping, tripping and stumbling without subsequent striking against object, initial encounter; Z95.5 Presence of coronary angioplasty implant and graft; Z88.5 Allergy status to narcotic agent

== ENCOUNTER 2023-04-17 19:23 | Emergency (ER) | payer MEDICARE, MEDICAID ==
[~2023-04-17] VITALS: Ht 152.4 cm; Wt 79.4 kg
[~2023-04-17 19:23] MED LIST changes: +MELOXICAM7.5 MG PO
[2023-04-17] MEDS ORDERED: ALBUTEROL108 MCG/AC (20:23)
[2023-04-17] MEDS ORDERED: METHOCARBAMOL 500 MG/TAB PO ONE (21:20)
[2023-04-17 22:41] VITALS: BP 137/87
[2023-04-17 22:45] VITALS: BP 129/79
[2023-04-17] MEDS ORDERED: LIDOcaine HCl 1% (Local Anesth.) 20 ML VIAL STI ONE (22:50)
[2023-04-17 23:00] VITALS: BP 139/82
[2023-04-17 23:15] VITALS: BP 125/76
[2023-04-17 23:30] VITALS: BP 142/75
[2023-04-17 23:45] VITALS: BP 129/77
[2023-04-18] VITALS (19 sets, daily range): BP systolic 118–159; BP diastolic 75–129
== END 2023-04-18 10:10 ==
LOC: ED 19:23
PROC: 0RWJXJZ Revision of Synthetic Substitute in Right Shoulder Joint, External Approach (ICD-10-PCS; principal; 2023-04-17)
DX: T84.028A Dislocation of other internal joint prosthesis, initial encounter (principal); I10 Essential (primary) hypertension; I25.10 Atherosclerotic heart disease of native coronary artery without angina pectoris; J45.909 Unspecified asthma, uncomplicated; I25.2 Old myocardial infarction; Y83.1 Surgical operation with implant of artificial internal device as the cause of abnormal reaction of the patient, or of later complication, without mention of misadventure at the time of the procedure; Z96.611 Presence of right artificial shoulder joint; Z95.5 Presence of coronary angioplasty implant and graft

== ENCOUNTER 2023-12-13 16:17 | Emergency (ER) | payer MEDICARE ==
[~2023-12-13] VITALS: Ht 152.4 cm; Wt 75.0 kg
[2023-12-13] VITALS (10 sets, daily range): BP systolic 124–141; BP diastolic 73–91
[~2023-12-13 16:17] MED LIST changes: +ALBUTEROL108 MCG/AC
[2023-12-13 16:47] LABS: BASO% 1.6 % (0-3); EOS% 11.4 % (0-8); HEMATOCRIT 42.4 % (37.0-47.0); HEMOGLOBIN 13.7 g/dl (12.0-16.0); IMMATURE GRANULOCYTES 0.1 % (0.0-5.0); LYMPH% 26.3 % (15-41); MEAN CELL VOLUME 85.5 fL CALC (80.0-100.0); MEAN CORPUSCULAR HGB 27.6 pG CALC (26.0-32.0); MEAN CORPUSCULAR HGB CONC 32.3 g/dL CAL (32.0-36.0); MONO% 17.7 % (2-13); NEUT# 3.64 thou/uL (2.00-7.15); NEUT% 42.9 % (42-76); RED BLOOD COUNT 4.96 mill/uL (4.20-5.60); RED CELL DISTRI WIDTH 14.1 % (11.5-15.5)
[2023-12-13] MEDS ORDERED: FAMOTIDINE 10MG/ML 2ML SDV IV ONE (16:50)
[2023-12-13] MEDS ORDERED: Pantoprazole Sodium 40 MG VIAL (Protonix) IV ONE (16:50)
[2023-12-13 17:35] LABS: ALBUMIN 4.4 g/dL (3.2-5.0); ALKALINE PHOSPHATASE 89 u/l (38-126); ANION GAP 10 (6-22 (CALC)); BILIRUBIN, TOTAL 0.4 mg/dL (0.02-1.3); BUN 22 mg/dL (8-23); BUN/CREATININE RATIO 22 (12-20 (CALC)); CARBON DIOXIDE 22 mmol/l (22-30); CHLORIDE 109 mmol/l (95-108); ESTIMATED GFR 59 ML/MIN (>=90 (CALC)); LIPASE 210 u/l (23-300); POTASSIUM 4.3 mmol/l (3.5-5.1); SGOT/AST 31 u/l (9-36); SODIUM 137 mmol/l (137-146); TOTAL PROTEIN 7.6 g/dL (6.3-8.2)
== END 2023-12-13 20:20 | disposition left against medical advice (07) ==
LOC: ED 16:17
PROVIDERS: Nurse Practitioner
DX: R07.9 Chest pain, unspecified (principal); I25.10 Atherosclerotic heart disease of native coronary artery without angina pectoris; I10 Essential (primary) hypertension; E78.5 Hyperlipidemia, unspecified; J44.9 Chronic obstructive pulmonary disease, unspecified; K21.9 Gastro-esophageal reflux disease without esophagitis; I25.2 Old myocardial infarction; T47.1X6A Underdosing of other antacids and anti-gastric-secretion drugs, initial encounter; Z91.128 Patient's intentional underdosing of medication regimen for other reason; Z95.5 Presence of coronary angioplasty implant and graft; Z88.6 Allergy status to analgesic agent; Z53.29 Procedure and treatment not carried out because of patient's decision for other reasons
CPT/HCPCS: J2470

== ENCOUNTER 2024-03-16 18:53 | Emergency (ER) | payer MEDICARE, MEDICAID ==
[2024-03-16] VITALS (7 sets, daily range): BP systolic 114–147; BP diastolic 72–94
[~2024-03-16] VITALS: Ht 152.4 cm; Wt 75.0 kg
[2024-03-16] MEDS ORDERED: PROMETHAZINE DM1 SOL PO (20:06)
[2024-03-16] MEDS ORDERED: PREDNISONE20 MG PO (20:06)
[2024-03-16] MEDS ORDERED: IPRATROPIU0.5 MG/3 M IN (20:11)
== END 2024-03-16 20:31 | disposition home or self-care (01) ==
LOC: ED 18:53
DX: J20.8 Acute bronchitis due to other specified organisms (principal); J45.909 Unspecified asthma, uncomplicated; I10 Essential (primary) hypertension; I25.2 Old myocardial infarction; Z95.5 Presence of coronary angioplasty implant and graft; Z20.822 Contact with and (suspected) exposure to COVID-19
CPT/HCPCS: J1100

== ENCOUNTER 2024-05-24 13:11 | Emergency (ER) | payer MEDICARE, MEDICAID ==
[2024-05-24] VITALS (13 sets, daily range): BP systolic 112–136; BP diastolic 59–79
[~2024-05-24] VITALS: Ht 152.4 cm; Wt 57.0 kg
[~2024-05-24 13:11] MED LIST changes: +IPRATROPIU0.5 MG/3 M IN; +PREDNISONE20 MG PO; +PROMETHAZINE DM1 SOL PO
[2024-05-24] MEDS ORDERED: IPRATROPIUM-Albuterol 0.5MG-2.5MG/3 ML NEB ONE (13:20)
[2024-05-24] MEDS ORDERED: ALBUTEROL SULFATE 2.5 MG VIAL NEB ONE (13:25)
[2024-05-24] MEDS ORDERED: methylPREDNISolone SODIUM SUCC 125 MG/2 ML SDV IV ONE (13:25)
[2024-05-24 13:46] LABS: BASO% 0.4 % (0-3); EOS% 1.6 % (0-8); HEMOGLOBIN 12.8 g/dl (12.0-16.0); IMMATURE GRANULOCYTES 0.3 % (0.0-5.0); LYMPH% 8.7 % (15-41); MEAN CELL VOLUME 84.9 fL CALC (80.0-100.0); MEAN CORPUSCULAR HGB 27.2 pG CALC (26.0-32.0); NEUT# 11.65 thou/uL (2.00-7.15); RED BLOOD COUNT 4.71 mill/uL (4.20-5.60); RED CELL DISTRI WIDTH 14.4 % (11.5-15.5)
[2024-05-24 14:01] LABS: ALBUMIN 4.2 g/dL (3.2-5.0); ALKALINE PHOSPHATASE 67 u/l (38-126); ANION GAP 12 (6-22 (CALC)); BUN 20 mg/dL (8-23); BUN/CREATININE RATIO 20 (12-20 (CALC)); CARBON DIOXIDE 24 mmol/l (22-30); CHLORIDE 104 mmol/l (95-108); ESTIMATED GFR 59 ML/MIN (>=90 (CALC)); POTASSIUM 4.5 mmol/l (3.5-5.1); SGOT/AST 36 u/l (9-36); SODIUM 136 mmol/l (137-146); TOTAL PROTEIN 8.2 g/dL (6.3-8.2)
[2024-05-24 14:02] LABS: BILIRUBIN, TOTAL 0.6 mg/dL (0.02-1.3)
[2024-05-24] MEDS ORDERED: DOXYCYCLINE100 MG PO (16:14)
[2024-05-24] MEDS ORDERED: PREDNISONE10 MG PO (16:17)
[2024-05-24] MEDS ORDERED: DOXYCYCLINE HYCLATE 100 MG/CAP PO ONE (16:20)
[2024-05-24] MEDS ORDERED: predniSONE 20 MG/TAB PO ONE (16:20)
== END 2024-05-24 16:34 | disposition home or self-care (01) ==
LOC: ED 13:11
PROVIDERS: Family Medicine
DX: J18.9 Pneumonia, unspecified organism (principal); J44.0 Chronic obstructive pulmonary disease with (acute) lower respiratory infection; I10 Essential (primary) hypertension; I25.2 Old myocardial infarction; Z95.5 Presence of coronary angioplasty implant and graft; Z20.822 Contact with and (suspected) exposure to COVID-19